=== PATIENT | male | born 1935 | race Two or more races ===

== ENCOUNTER 2018-03-06 14:56 | Inpatient (IN) | payer MEDICARE ==
--- NOTE | 2018-03-06 15:35 | ER Document Report ---
ED General - General Chief Complaint: Chest Pain Stated Complaint: CHEST PAIN Time Seen by Provider: 03/06/18 15:30 Mode of Arrival: Ambulatory Information source: Patient, Relative, Outside Facility Records Notes: 82-year-old male with tremors dementia, osteoarthritis presents via EMS from home after the patient complained of chest pain and had what family reports to be a syncopal episode. Patient is Kazakh-speaking and translation is performed by the daughter who is at the bedside and provides the majority of the history. She states that 1.5 hours prior to arrival her father began to become complaining of chest pain that was located in his right upper chest described as tightness and lasted approximately 20 minutes. and daughter assisted the patient to the bathroom when he became limp and unresponsive. Patient currently complaining of pain in the right upper quadrant. He describes it as a throbbing, burning pain. He has had prior similar symptoms. He denies any cardiac history. Patient recently arrived from the [facility] but denies any shortness of breath, leg swelling, prior history of PE or DVT. She also reports that his last bowel movement was 3 days prior to arrival. He took a laxative and had a large bowel movement this morning. TRAVEL OUTSIDE OF THE [place] IN LAST 30 DAYS: Yes COUNTRY TRAVELED TO/FROM: [facility] - [facility] Onset: Just prior to arrival Onset/Duration: Sudden Quality of pain: Achy, Burning Severity: Moderate Associated symptoms: Chest pain, Nausea, Weakness Exacerbated by: Denies Relieved by: Denies Similar symptoms previously: Yes Recently seen / treated by doctor: Yes - Related Data Allergies/Adverse Reactions: No Known Allergies Allergy (Verified 09/18/14 15:08) Past Medical History - General Information source: Patient, Relative, Emergency Med Personnel - Social History Smoking Status: Former Smoker Frequency of alcohol use: None Drug Abuse: None Lives with: Family Family History: Reviewed & Not Pertinent Patient has suicidal ideation: No Patient has homicidal ideation: No - Medical History Medical History: Other - Alzheimer's dementia, osteoarthritis Psychiatric Medical History: Denies: Hx Depression - Immunizations Hx Diphtheria, Pertussis, Tetanus Vaccination: Yes Review of Systems - Review of Systems Notes: REVIEW OF SYSTEMS: CONSTITUTIONAL : Denies fever, chills, or sweats. Denies recent illness. Denies weight loss, recent hospitalizations. EENT: Denies visula changes, eye pain. Denies nasal or sinus congestion or discharge. Denies sore throat, oral lesions, difficulty swallowing. CARDIOVASCULAR: Denies palpitations or racing or irregular heart beat. Denies lower extremity edema. RESPIRATORY: Denies cough, cold, or chest congestion. Denies shortness of breath, difficulty breathing, or wheezing. GASTROINTESTINAL: Denies vomiting, or diarrhea. Denies blood in vomitus, stools , or per rectum. Denies black, tarry stools. admits to constipation. GENITOURINARY: Denies difficulty urinating, painful urination, burning, frequency, blood in urine, or vaginal discharge. MUSCULOSKELETAL: Denies back or neck pain or stiffness. Denies joint pain or swelling. SKIN: Denies rash, lesions or sores. HEMATOLOGIC : Denies easy bruising or bleeding. LYMPHATIC: Denies swollen, enlarged glands. NEUROLOGICAL: Denies confusion or altered mental status. Denies passing out or loss of consciousness. Denies dizziness or lightheadedness. Denies headache. Denies weakness or paralysis or loss of use of either side. Denies problems with gait or speech. Denies sensory loss, numbness, or tingling. Denies seizures. PSYCHIATRIC: Denies anxiety or stress. Denies depression, suicidal ideation, or homicidal ideation. Physical Exam - Vital signs Vitals: Resp Pulse Ox 16 99 03/06/18 15:22 03/06/18 15:22 - Notes Notes: PHYSICAL EXAMINATION: GENERAL: Well-appearing, well-nourished and in no acute distress. HEAD: Atraumatic, normocephalic. EYES: Pupils equal round and reactive to light, extraocular movements intact, sclera anicteric, conjunctiva are normal. ENT: Nares patent, oropharynx clear without exudates. Moist mucous membranes. NECK: Normal range of motion, supple without lymphadenopathy LUNGS: Breath sounds clear to auscultation bilaterally and equal. No wheezes rales or rhonchi. HEART: Regular rate and rhythm without murmurs ABDOMEN: Tender to palpation in the right upper quadrant. No guarding, no rebound. No masses appreciated. Musculoskeletal: Normal range of motion, no pitting or edema. No cyanosis. NEUROLOGICAL: Cranial nerves grossly intact. Normal speech, normal gait. Normal sensory, motor exams PSYCH: Normal mood, normal affect. SKIN: Warm, Dry, normal turgor, no rashes or lesions noted. Course - Re-evaluation Re-evalutation: Laboratory 03/06/18 03/06/18 03/06/18 14:45 15:10 15:10 WBC 4.6 RBC 3.83 L Hgb 12.1 L Hct 35.1 L MCV 92 MCH 31.5 MCHC 34.3 RDW 13.8 Plt Count 169 Seg Neutrophils % 38.4 L Lymphocytes % 44.9 Monocytes % 10.9 Eosinophils % 4.7 Basophils % 1.1 Absolute Neutrophils 1.8 Absolute Lymphocytes 2.1 Absolute Monocytes 0.5 Absolute Eosinophils 0.2 Absolute Basophils 0.1 D-Dimer 2.43 H Sodium 139.1 Potassium 4.2 Chloride 105 Carbon Dioxide 26 Anion Gap 8 BUN 21 H Creatinine 0.94 Est GFR ( Amer) > 60 Est GFR (Non-Af Amer) > 60 Glucose 124 H Calcium 9.7 Total Bilirubin 0.6 Direct Bilirubin 0.3 Neonat Total Bilirubin Not Reportable Neonat Direct Bilirubin Not Reportable Neonat Indirect Bili Not Reportable AST 23 ALT 20 L Alkaline Phosphatase 45 Creatine Kinase 78 CK-MB (CK-2) Troponin I Total Protein 6.5 Albumin 3.5 TSH Urine Color Urine Appearance Urine pH Ur Specific Roy Urine Protein Urine Glucose (UA) Urine Ketones Urine Blood Urine Nitrite Urine Bilirubin Urine Urobilinogen Ur Leukocyte Esterase Urine WBC (Auto) Urine RBC (Auto) Squamous Epi Cells Auto Urine Mucus (Auto) Urine Ascorbic Acid 03/06/18 03/06/18 03/06/18 15:10 15:10 18:11 WBC RBC Hgb Hct MCV MCH MCHC RDW Plt Count Seg Neutrophils % Lymphocytes % Monocytes % Eosinophils % Basophils % Absolute Neutrophils Absolute Lymphocytes Absolute Monocytes Absolute Eosinophils Absolute Basophils D-Dimer Sodium Potassium Chloride Carbon Dioxide Anion Gap BUN Creatinine Est GFR ( Amer) Est GFR (Non-Af Amer) Glucose Calcium Total Bilirubin Direct Bilirubin Neonat Total Bilirubin Neonat Direct Bilirubin Neonat Indirect Bili AST ALT Alkaline Phosphatase Creatine Kinase CK-MB (CK-2) 2.19 Troponin I < 0.012 Total Protein Albumin TSH 3.00 Urine Color YELLOW Urine Appearance CLEAR Urine pH 5.0 Ur Specific Roy 1.017 Urine Protein NEGATIVE Urine Glucose (UA) NEGATIVE Urine Ketones TRACE H Urine Blood NEGATIVE Urine Nitrite NEGATIVE Urine Bilirubin NEGATIVE Urine Urobilinogen NEGATIVE Ur Leukocyte Esterase NEGATIVE Urine WBC (Auto) 1 Urine RBC (Auto) 9 Squamous Epi Cells Auto <1 Urine Mucus (Auto) OCC Urine Ascorbic Acid NEGATIVE 03/06/18 03/06/18 21:36 21:36 WBC RBC Hgb Hct MCV MCH MCHC RDW Plt Count Seg Neutrophils % Lymphocytes % Monocytes % Eosinophils % Basophils % Absolute Neutrophils Absolute Lymphocytes Absolute Monocytes Absolute Eosinophils Absolute Basophils D-Dimer Sodium Potassium Chloride Carbon Dioxide Anion Gap BUN Creatinine Est GFR ( Amer) Est GFR (Non-Af Amer) Glucose Calcium Total Bilirubin Direct Bilirubin Neonat Total Bilirubin Neonat Direct Bilirubin Neonat Indirect Bili AST ALT Alkaline Phosphatase Creatine Kinase 91 CK-MB (CK-2) 2.31 Troponin I < 0.012 Total Protein Albumin TSH Urine Color Urine Appearance Urine pH Ur Specific Roy Urine Protein Urine Glucose (UA) Urine Ketones Urine Blood Urine Nitrite Urine Bilirubin Urine Urobilinogen Ur Leukocyte Esterase Urine WBC (Auto) Urine RBC (Auto) Squamous Epi Cells Auto Urine Mucus (Auto) Urine Ascorbic Acid Impressions Abdomen Ultrasound 03/06/18 15:38 IMPRESSION: Cholelithiasis with no direct evidence of cholecystitis. No ductal dilatation. Chest/Abdomen CTA 03/06/18 17:56 IMPRESSION: 1. There is no evidence of pulmonary emboli. 2. Mild dependent atelectasis. 3. Compression changes in the mid thoracic spine as described. Abdomen/Pelvis CT 03/06/18 18:16 IMPRESSION: Mild diverticulosis coli. No acute imaging findings in the abdomen or pelvis. Medications Albuterol/Ipratropium (Duoneb 3 Ml Ampul) 3 ml NEB [id number] PRN PRN Reason: SHORTNESS OF BREATH Stop: 04/05/18 20:14 Heparin Sodium (Porcine) (Heparin Inj 5,000 Units/Ml 1 Ml Syringe) 5,000 unit SUBCUT Q8 TAVIA Stop: 04/05/18 21:59 Sodium Chloride (Nacl 0.9% 1000 Ml Iv Soln) 1,000 mls @ 200 mls/hr IV X 1 BAG ONE Stop: 03/07/18 01:16 Last Admin: 03/06/18 21:51 Dose: 1,000 ml Discontinued Medications Al Hydrox/Mg Hydrox/Simethicone (Maalox Plus Susp 30 Udcup) 30 ml PO NOW ONE Stop: 03/06/18 15:40 Last Admin: 03/06/18 17:57 Dose: 30 ml Aspirin (Aspirin 81 Mg Chewable Tablet) 162 mg PO NOW ONE Stop: 03/06/18 15:40 Last Admin: 03/06/18 17:57 Dose: 162 mg Sodium Chloride (Nacl 0.9% 500 Ml Iv Soln) 500 mls @ 0 mls/hr IV NOW ONE PRN Reason: Wide Open Stop: 03/06/18 15:39 Last Admin: 03/06/18 17:57 Dose: 500 ml Lidocaine HCl (Xylocaine 2% Viscous Soln 20 Ml Udcup) 15 ml PO NOW ONE Stop: 03/06/18 15:40 Last Admin: 03/06/18 17:57 Dose: 15 ml Magnesium Hydroxide (Milk Of Magnesia 30 Ml Udcup) 30 ml PO NOW ONE Stop: 03/06/18 20:18 Last Admin: 03/06/18 21:51 Dose: 30 ml Metoclopramide HCl (Reglan Oral Soln 10 Mg/10 Ml Udcup) 10 mg PO NOW ONE Stop: 03/06/18 15:40 Last Admin: 03/06/18 17:57 Dose: 10 mg Mineral Oil (Fleet Mineral Oil Enema 133 Ml) 133 ml NJ NOW ONE Stop: 03/06/18 20:16 Mineral Oil (Fleet Mineral Oil Enema 133 Ml) 133 ml NJ NOW ONE Stop: 03/06/18 23:31 Morphine Sulfate (Morphine 10 Mg/Ml Inj) 4 mg IV NOW ONE Stop: 03/06/18 19:42 Last Admin: 03/06/18 20:18 Dose: 4 mg Ondansetron HCl (Zofran Inj/Pf 4 Mg/2 Ml Sdv) 4 mg IV NOW ONE Stop: 03/06/18 19:43 Last Admin: 03/06/18 20:18 Dose: 4 mg Orders 03/06/18 EKG ER ONLY [ER] Stat 03/06/18 14:45 D-DIMER [COAG] Stat 03/06/18 14:59 EKG Documentation STAT 03/06/18 15:10 CBC WITH DIFF [HEME] Stat COMPREHENSIVE METABOLIC PANEL [CHEM] Stat CREATINE KINASE MB [CHEM] Stat CREATINE KINASE [CHEM] Stat THYROID STIMULATING HORMONE [CHEM] Stat TROPONIN I [CHEM] Stat 03/06/18 15:38 US [U/S ABDOMEN COMPLETE W/O DOP] [US] Stat Normal Saline [NaCl 0.9% 500 ml IV Soln] 500 ml IV NOW 03/06/18 15:39 Aspirin [Aspirin 81 mg Chewable Tablet] 162 mg PO NOW ONE Lidocaine HCl [Xylocaine 2% Viscous Soln 20 ml Udcup] 15 ml PO NOW ONE Mag Hydrox/Al Hydrox/Simeth [Maalox Plus Susp 30 Udcup] 30 ml PO NOW ONE Metoclopramide HCl [Reglan Oral Soln 10 mg/10 ml Udcup] 10 mg PO NOW ONE 03/06/18 17:56 CTA CHEST [CT] Stat 03/06/18 18:11 URINALYSIS [URIN] Stat 03/06/18 18:16 CT ABD/PELVIS WITH IV ONLY [CT] Stat 03/06/18 19:41 Morphine Sulfate [Morphine 10 mg/ml Inj] 4 mg IV NOW ONE 03/06/18 19:42 Ondansetron HCl/Pf [Zofran Inj/Pf 4 mg/2 ml Sdv] 4 mg IV NOW ONE 03/06/18 20:15 Adult Intake and Output [RC] QSHIFT Nurse Licensed Practical [RC] CONTINUOUS Fall Precaution [RC] .ROUTINE Out of Bed with assistance [RC] .ROUTINE Patient Status-Admission .Routine Social Service/Discharge Plan Consult [CONS] Routine Ipratropium/Albuterol Sulfate [Duoneb 3 ml Ampul] 3 ml NEB [id number] PRN Mineral Oil [Fleet Mineral Oil Enema 133 ml] 133 ml NJ NOW ONE Mechanical Prophylaxis .ROUTINE Pharmacological Prophylaxis .ROUTINE Resuscitation Status Routine Vital Signs [RC] Q4H Weight [RC] Q6AM Physical Therapy Evaluation [REHAB] .once 03/06/18 20:17 Magnesium Hydroxide [Milk of Magnesia 30 ml Udcup] 30 ml PO NOW ONE Normal Saline 1000 ml [NaCl 0.9% 1000 ml IV Soln] 1,000 ml IV X 1 BAG 03/06/18 20:18 Patient Education-VTE [RC] QSHIFT Garcia Hose [RC] QSHIFT Nebulizer Therapy Routine [RESPCARE] [id number] 03/06/18 20:22 Orthostatic Vital Signs [RC] QSHIFT 03/06/18 21:36 CREATINE KINASE MB [CHEM] Q6H CREATINE KINASE [CHEM] Q6H TROPONIN I [CHEM] Q6H 03/06/18 22:00 Heparin Sodium,Porcine [Heparin Inj 5,000 Units/ml 1 ml Syringe] 5,000 unit SUBCUT Q8 03/06/18 23:12 Social Service/Discharge Plan Consult [CONS] Routine 03/06/18 23:30 Mineral Oil [Fleet Mineral Oil Enema 133 ml] 133 ml NJ NOW ONE 03/06/18 Breakfast Adult Diet [DIET] 03/07/18 02:30 CREATINE KINASE MB [CHEM] Q6H CREATINE KINASE [CHEM] Q6H TROPONIN I [CHEM] Q6H 03/07/18 08:30 CREATINE KINASE MB [CHEM] Q6H CREATINE KINASE [CHEM] Q6H TROPONIN I [CHEM] Q6H Vital Signs Resp BP Pulse Ox 03/06/18 22:01 15 99 03/06/18 22:00 25 H 118/68 98 03/06/18 21:59 15 98 03/06/18 21:01 13 97 03/06/18 21:00 15 119/58 L 97 03/06/18 20:59 15 97 03/06/18 20:19 19 120/69 99 03/06/18 20:18 22 H 99 03/06/18 20:00 18 99 03/06/18 19:54 98 03/06/18 18:01 22 H 100 03/06/18 18:00 28 H 128/64 H 99 03/06/18 17:59 18 100 03/06/18 17:58 31 H 125/62 100 03/06/18 17:57 29 H 100 03/06/18 17:55 98 03/06/18 16:01 16 117/56 L 98 03/06/18 16:00 17 97 03/06/18 15:27 13 98/84 L 100 03/06/18 15:26 20 115/67 100 03/06/18 15:25 26 H 100 03/06/18 15:22 16 99 Laboratory 03/06/18 03/06/18 03/06/18 14:45 15:10 15:10 WBC 4.6 RBC 3.83 L Hgb 12.1 L Hct 35.1 L MCV 92 MCH 31.5 MCHC 34.3 RDW 13.8 Plt Count 169 Seg Neutrophils % 38.4 L Lymphocytes % 44.9 Monocytes % 10.9 Eosinophils % 4.7 Basophils % 1.1 Absolute Neutrophils 1.8 Absolute Lymphocytes 2.1 Absolute Monocytes 0.5 Absolute Eosinophils 0.2 Absolute Basophils 0.1 D-Dimer 2.43 H Sodium 139.1 Potassium 4.2 Chloride 105 Carbon Dioxide 26 Anion Gap 8 BUN 21 H Creatinine 0.94 Est GFR ( Amer) > 60 Est GFR (Non-Af Amer) > 60 Glucose 124 H Calcium 9.7 Total Bilirubin 0.6 Direct Bilirubin 0.3 Neonat Total Bilirubin Not Reportable Neonat Direct Bilirubin Not Reportable Neonat Indirect Bili Not Reportable AST 23 ALT 20 L Alkaline Phosphatase 45 Creatine Kinase 78 CK-MB (CK-2) Troponin I Total Protein 6.5 Albumin 3.5 TSH Urine Color Urine Appearance Urine pH Ur Specific Roy Urine Protein Urine Glucose (UA) Urine Ketones Urine Blood Urine Nitrite Urine Bilirubin Urine Urobilinogen Ur Leukocyte Esterase Urine WBC (Auto) Urine RBC (Auto) Squamous Epi Cells Auto Urine Mucus (Auto) Urine Ascorbic Acid 03/06/18 03/06/18 03/06/18 15:10 15:10 18:11 WBC RBC Hgb Hct MCV MCH MCHC RDW Plt Count Seg Neutrophils % Lymphocytes % Monocytes % Eosinophils % Basophils % Absolute Neutrophils Absolute Lymphocytes Absolute Monocytes Absolute Eosinophils Absolute Basophils D-Dimer Sodium Potassium Chloride Carbon Dioxide Anion Gap BUN Creatinine Est GFR ( Amer) Est GFR (Non-Af Amer) Glucose Calcium Total Bilirubin Direct Bilirubin Neonat Total Bilirubin Neonat Direct Bilirubin Neonat Indirect Bili AST ALT Alkaline Phosphatase Creatine Kinase CK-MB (CK-2) 2.19 Troponin I < 0.012 Total Protein Albumin TSH 3.00 Urine Color YELLOW Urine Appearance CLEAR Urine pH 5.0 Ur Specific Roy 1.017 Urine Protein NEGATIVE Urine Glucose (UA) NEGATIVE Urine Ketones TRACE H Urine Blood NEGATIVE Urine Nitrite NEGATIVE Urine Bilirubin NEGATIVE Urine Urobilinogen NEGATIVE Ur Leukocyte Esterase NEGATIVE Urine WBC (Auto) 1 Urine RBC (Auto) 9 Squamous Epi Cells Auto <1 Urine Mucus (Auto) OCC Urine Ascorbic Acid NEGATIVE 03/06/18 03/06/18 21:36 21:36 WBC RBC Hgb Hct MCV MCH MCHC RDW Plt Count Seg Neutrophils % Lymphocytes % Monocytes % Eosinophils % Basophils % Absolute Neutrophils Absolute Lymphocytes Absolute Monocytes Absolute Eosinophils Absolute Basophils D-Dimer Sodium Potassium Chloride Carbon Dioxide Anion Gap BUN Creatinine Est GFR ( Amer) Est GFR (Non-Af Amer) Glucose Calcium Total Bilirubin Direct Bilirubin Neonat Total Bilirubin Neonat Direct Bilirubin Neonat Indirect Bili AST ALT Alkaline Phosphatase Creatine Kinase 91 CK-MB (CK-2) 2.31 Troponin I < 0.012 Total Protein Albumin TSH Urine Color Urine Appearance Urine pH Ur Specific Roy Urine Protein Urine Glucose (UA) Urine Ketones Urine Blood Urine Nitrite Urine Bilirubin Urine Urobilinogen Ur Leukocyte Esterase Urine WBC (Auto) Urine RBC (Auto) Squamous Epi Cells Auto Urine Mucus (Auto) Urine Ascorbic Acid Discharge Plan of Care Instructions: Stand-Alone Forms: Visit Report - Forms: - Referrals: Emergency Department Last Name: SARI Status: Bed Clean First Name: ROSA Priority: 3H Middle: Condition: Birthdate: 1935 Arrival Date/Time: 03/06/18 14:56 Age: 82 Arrival Mode: AMBULANCE Sex: M Triaged At: 03/06/18 15:28 Language: Croatian Time Seen by Provider: 03/06/18 15:30 Stated Complaint: CHEST PAIN Chief Complaint: Chest Pain ED Location: POD 1 Area: 04 Station: Group: ED Provider: ALVINA PLAAZ ED Midlevel Provider: ED Nurse: Primary Care Provider: Status/Phase DtTm/Value User/Action Bed Request 03/06/18 20:40:50 APPLE GOINS Attending Provider SUKH JOHNSON MD New Admitting Provider SUKH JOHNSON MD New With Provider 03/06/18 15:30:35 ALVINA PLAZA Ed Provider ALVINA PLAZA DO Edit Arrival 03/06/18 15:28 BRUNO RUIZ Chief Complaint Chest Pain New 03/06/18 14:56:55 KELLY OSTO Ed Provider PROVIDER, ER New Stated Complaint CHEST PAIN New Abdomen Ultrasound 03/06/18 15:38 IMPRESSION: Cholelithiasis with no direct evidence of cholecystitis. No ductal dilatation. Chest/Abdomen CTA 03/06/18 17:56 IMPRESSION: 1. There is no evidence of pulmonary emboli. 2. Mild dependent atelectasis. 3. Compression changes in the mid thoracic spine as described. Abdomen/Pelvis CT 03/06/18 18:16 IMPRESSION: Mild diverticulosis coli. No acute imaging findings in the abdomen or pelvis. Laboratory 03/06/18 03/06/18 03/06/18 14:45 15:10 15:10 WBC 4.6 RBC 3.83 L Hgb 12.1 L Hct 35.1 L MCV 92 MCH 31.5 MCHC 34.3 RDW 13.8 Plt Count 169 Seg Neutrophils % 38.4 L Lymphocytes % 44.9 Monocytes % 10.9 Eosinophils % 4.7 Basophils % 1.1 Absolute Neutrophils 1.8 Absolute Lymphocytes 2.1 Absolute Monocytes 0.5 Absolute Eosinophils 0.2 Absolute Basophils 0.1 D-Dimer 2.43 H Sodium 139.1 Potassium 4.2 Chloride 105 Carbon Dioxide 26 Anion Gap 8 BUN 21 H Creatinine 0.94 Est GFR ( Amer) > 60 Est GFR (Non-Af Amer) > 60 Glucose 124 H Calcium 9.7 Total Bilirubin 0.6 Direct Bilirubin 0.3 Neonat Total Bilirubin Not Reportable Neonat Direct Bilirubin Not Reportable Neonat Indirect Bili Not Reportable AST 23 ALT 20 L Alkaline Phosphatase 45 Creatine Kinase 78 CK-MB (CK-2) Troponin I Total Protein 6.5 Albumin 3.5 TSH Urine Color Urine Appearance Urine pH Ur Specific Roy Urine Protein Urine Glucose (UA) Urine Ketones Urine Blood Urine Nitrite Urine Bilirubin Urine Urobilinogen Ur Leukocyte Esterase Urine WBC (Auto) Urine RBC (Auto) Squamous Epi Cells Auto Urine Mucus (Auto) Urine Ascorbic Acid 03/06/18 03/06/18 03/06/18 15:10 15:10 18:11 WBC RBC Hgb Hct MCV MCH MCHC RDW Plt Count Seg Neutrophils % Lymphocytes % Monocytes % Eosinophils % Basophils % Absolute Neutrophils Absolute Lymphocytes Absolute Monocytes Absolute Eosinophils Absolute Basophils D-Dimer Sodium Potassium Chloride Carbon Dioxide Anion Gap BUN Creatinine Est GFR ( Amer) Est GFR (Non-Af Amer) Glucose Calcium Total Bilirubin Direct Bilirubin Neonat Total Bilirubin Neonat Direct Bilirubin Neonat Indirect Bili AST ALT Alkaline Phosphatase Creatine Kinase CK-MB (CK-2) 2.19 Troponin I < 0.012 Total Protein Albumin TSH 3.00 Urine Color YELLOW Urine Appearance CLEAR Urine pH 5.0 Ur Specific Roy 1.017 Urine Protein NEGATIVE Urine Glucose (UA) NEGATIVE Urine Ketones TRACE H Urine Blood NEGATIVE Urine Nitrite NEGATIVE Urine Bilirubin NEGATIVE Urine Urobilinogen NEGATIVE Ur Leukocyte Esterase NEGATIVE Urine WBC (Auto) 1 Urine RBC (Auto) 9 Squamous Epi Cells Auto <1 Urine Mucus (Auto) OCC Urine Ascorbic Acid NEGATIVE 03/06/18 03/06/18 21:36 21:36 WBC RBC Hgb Hct MCV MCH MCHC RDW Plt Count Seg Neutrophils % Lymphocytes % Monocytes % Eosinophils % Basophils % Absolute Neutrophils Absolute Lymphocytes Absolute Monocytes Absolute Eosinophils Absolute Basophils D-Dimer Sodium Potassium Chloride Carbon Dioxide Anion Gap BUN Creatinine Est GFR ( Amer) Est GFR (Non-Af Amer) Glucose Calcium Total Bilirubin Direct Bilirubin Neonat Total Bilirubin Neonat Direct Bilirubin Neonat Indirect Bili AST ALT Alkaline Phosphatase Creatine Kinase 91 CK-MB (CK-2) 2.31 Troponin I < 0.012 Total Protein Albumin TSH Urine Color Urine Appearance Urine pH Ur Specific Roy Urine Protein Urine Glucose (UA) Urine Ketones Urine Blood Urine Nitrite Urine Bilirubin Urine Urobilinogen Ur Leukocyte Esterase Urine WBC (Auto) Urine RBC (Auto) Squamous Epi Cells Auto Urine Mucus (Auto) Urine Ascorbic Acid Abdomen Ultrasound 03/06/18 15:38 IMPRESSION: Cholelithiasis with no direct evidence of cholecystitis. No ductal dilatation. Chest/Abdomen CTA 03/06/18 17:56 IMPRESSION: 1. There is no evidence of pulmonary emboli. 2. Mild dependent atelectasis. 3. Compression changes in the mid thoracic spine as described. Abdomen/Pelvis CT 03/06/18 18:16 IMPRESSION: Mild diverticulosis coli. No acute imaging findings in the abdomen or pelvis. 03/06/18 23:31 82-year-old male with Alzheimer's dementia, osteoarthritis presents via EMS from home after the patient complained of chest pain and had what family reports to be a syncopal episode. Patient is Kazakh-speaking and translation is performed by the daughter who is at the bedside and provides the majority of the history. She states that 1.5 hours prior to arrival her father began to become complaining of chest pain that was located in his right upper chest described as tightness and lasted approximately 20 minutes. and daughter assisted the patient to the bathroom when he became limp and unresponsive. Patient currently complaining of pain in the right upper quadrant. Upon arrival patient was placed on a cardiac/vascular sonographer and an EKG was obtained which showed the patient to be in sinus bradycardia. Patient was seen by myself upon arrival. Vital signs were reviewed. Patient is afebrile, normotensive and not hypoxic. Patient does not appear toxic or dehydrated. They are in no acute distress. Previous medical records and nursing notes reviewed. Significant findings include tenderness with palpation to the right upper quadrant without guarding or rebound. Ultrasound of the abdomen is significant for cholelithiasis without evidence of cholecystitis. CTA was performed due to elevated d-dimer and showed no PE. CT of the abdomen and pelvis was obtained and showed mild diverticulosis without evidence of diverticulitis. Patient was administered IV fluids, pain medications during his ED course. Cardiac enzymes within normal limits. Patient has a mildly elevated d-dimer, CBC is without leukocytosis. Patient will be admitted for syncope. 03/06/18 23:32 03/06/18 23:32 03/06/18 23:37 - Vital Signs Vital signs: Temp Pulse Resp BP Pulse Ox 15 118/68 99 03/06/18 22:01 03/06/18 22:00 03/06/18 22:01 - Laboratory Result Diagrams: 03/06/18 15:10 03/06/18 15:10 Laboratory results interpreted by me: 03/06/18 03/06/18 03/06/18 14:45 15:10 15:10 RBC 3.83 L Hgb 12.1 L Hct 35.1 L Seg Neutrophils % 38.4 L D-Dimer 2.43 H BUN 21 H Glucose 124 H ALT 20 L Urine Ketones 03/06/18 18:11 RBC Hgb Hct Seg Neutrophils % D-Dimer BUN Glucose ALT Urine Ketones TRACE H - Diagnostic Test Radiology reviewed: Image reviewed, Reports reviewed - EKG Interpretation by Me EKG shows normal: Sinus rhythm Rate: Bradycardia Rhythm: NSR Discharge - Discharge Clinical Impression: Syncope and collapse Chest pain Qualifiers: Chest pain type: unspecified Qualified Code(s): R07.9 - Chest pain, unspecified Cholelithiasis Qualifiers: Cholelithiasis location: gallbladder Cholecystitis presence: without cholecystitis Biliary obstruction: without biliary obstruction Qualified Code(s) : K80.20 - Calculus of gallbladder without cholecystitis without obstruction Dementia Qualifiers: Dementia type: Alzheimer's disease Alzheimer's disease onset: unspecified onset Dementia behavioral disturbance: without behavioral disturbance Qualified Code(s): G30.9 - Alzheimer's disease, unspecified Disposition: ADMITTED OBSERVATION Admitting Provider: Hospitalist Unit Admitted: Telemetry
[2018-03-06] MEDS ORDERED: NORMAL SALINE 500 ML IV ONE (15:38)
[2018-03-06] MEDS ORDERED: LIDOCAINE 2% VISCOUS SOLN 20 ML UDCUP PO ONE (15:39)
[2018-03-06] MEDS ORDERED: MAG HYDROX/AL HYDROX/SIMETH SUSP 30 ML UDCUP PO ONE (15:39)
[2018-03-06] MEDS ORDERED: ASPIRIN 81 MG TABLET, CHEWABLE PO ONE (15:39)
[2018-03-06] MEDS ORDERED: METOCLOPRAMIDE HCL ORAL SOLN 10 MG/10 ML UDCUP PO ONE (15:39)
[2018-03-06 16:05] LABS: ABSOLUTE BASOPHILS # (AUTO) 0.1 10^3/uL (0.0-0.2); ABSOLUTE EOSINOPHILS # (AUTO) 0.2 10^3/uL (0.0-0.6); ABSOLUTE LYMPHOCYTES (AUTO) 2.1 10^3/uL (0.5-4.7); ABSOLUTE MONOCYTES (AUTO) 0.5 10^3/uL (0.1-1.4); ABSOLUTE NEUT (AUTO) 1.8 10^3/uL (1.7-8.2); BASOPHILS % (AUTO) 1.1 % (0-2); EOSINOPHILS % (AUTO) 4.7 % (0-6); HEMATOCRIT 35.1 % (37.9-51.0); HEMOGLOBIN 12.1 g/dL (13.5-17.0); LYMPHOCYTES % (AUTO) 44.9 % (13-45); MEAN CORPUSCULAR HEMOGLOBIN 31.5 pg (27.0-33.4); MEAN CORPUSCULAR HGB CONC 34.3 g/dL (32.0-36.0); MEAN CORPUSCULAR VOLUME 92 fl (80-97); MONOCYTES % (AUTO) 10.9 % (3-13); PLATELET COUNT 169 10^3/uL (150-450); RED BLOOD COUNT 3.83 10^6/uL (4.35-5.55); RED CELL DISTRIBUTION WIDTH 13.8 % (11.5-14.0); SEGMENTED NEUTROPHILS % (AUTO) 38.4 % (42-78); TOTAL CELLS COUNTED % (AUTO) 100 %; WHITE BLOOD COUNT 4.6 10^3/uL (4.0-10.5)
[2018-03-06 16:15] LABS: ALANINE AMINOTRANSFERASE 20 U/L (21-72); ALBUMIN 3.5 g/dL (3.5-5.0); ALKALINE PHOSPHATASE 45 U/L (38-126); ANION GAP 8 (5-19); ASPARTATE AMINO TRANSFERASE 23 U/L (17-59); BILIRUBIN,DIRECT 0.3 mg/dL (0.0-0.4); BILIRUBIN,TOTAL 0.6 mg/dL (0.2-1.3); BLOOD UREA NITROGEN 21 mg/dL (7-20); CALCIUM 9.7 mg/dL (8.4-10.2); CARBON DIOXIDE 26 mmol/L (22-30); CHLORIDE 105 mmol/L (98-107); CREATINE KINASE 78 U/L (55-170); GLUCOSE 124 mg/dL (75-110); POTASSIUM 4.2 mmol/L (3.6-5.0); SODIUM 139.1 mmol/L (137-145); TOTAL PROTEIN 6.5 g/dL (6.3-8.2)
[2018-03-06 16:23] LABS: CREATINE KINASE MB 2.19 ng/mL (<4.55)
[2018-03-06 16:28] LABS: TROPONIN I < 0.012 ng/mL
--- NOTE | 2018-03-06 17:27 | RADIOLOGY REPORT (SQ) ---
EXAM DESCRIPTION: U/S ABDOMEN COMPLETE W/O DOP COMPLETED DATE/TIME: 03/06/2018 5:16 pm REASON FOR STUDY: ruq pain COMPARISON: None. TECHNIQUE: Dynamic and static grayscale images acquired of the abdomen and recorded on PACS. Additio nal selected color Doppler and spectral images recorded. LIMITATIONS: None. FINDINGS: PANCREAS: No masses. Visualized pancreatic duct normal caliber. LIVER: 14.1 cm. Normal echotexture. LIVER VASCULATURE: Normal directional flow of the main portal vein and hepatic veins. GALLBLADDER: Small gallstones are present. Normal wall thickness. ULTRASOUND-DETECTED HELTON'S SIGN: Negative. INTRAHEPATIC DUCTS AND COMMON DUCT: CBD and intrahepatic ducts normal caliber. No filling defects. INFERIOR VENA CAVA: Patent. AORTA: No aneurysm. The proximal aorta was not well seen. RIGHT KIDNEY: Normal size, 10.5 cm. Normal echogenicity. No solid or suspicious masses. No hyd ronephrosis. No calcifications. LEFT KIDNEY: Normal size, 10.5 cm. Normal echogenicity. No solid or suspicious masses. No hydr onephrosis. No calcifications. SPLEEN: Normal size, 8.2 cm. No solid masses. PERITONEAL AND PLEURAL SPACES: No ascites or effusions. OTHER: No other significant finding. IMPRESSION: Cholelithiasis with no direct evidence of cholecystitis. No ductal dilatation. TECHNICAL DOCUMENTATION: JOB ID: [id number] [employer]- All Rights Reserved Reading location - IP/workstation name: [email or web address]
[2018-03-06 18:36] LABS: APPEARANCE,URINE CLEAR; BILIRUBIN,URINE NEGATIVE (NEGATIVE); COLOR,URINE YELLOW; GLUCOSE, URINE NEGATIVE (NEGATIVE); KETONES,URINE TRACE mg/dL (NEGATIVE); LEUKOCYTE ESTERASE,URINE NEGATIVE (NEGATIVE); NITRITE,URINE NEGATIVE (NEGATIVE); PROTEIN,URINE NEGATIVE (NEGATIVE); URINE SPECIFIC GRAVITY 1.017; UROBILINOGEN,URINE NEGATIVE mg/dL (<2.0)
--- NOTE | 2018-03-06 18:59 | RADIOLOGY REPORT (SQ) ---
EXAM DESCRIPTION: CTA CHEST COMPLETED DATE/TIME: 03/06/2018 6:42 pm REASON FOR STUDY: elevated dimer loc COMPARISON: 09/18/2014 TECHNIQUE: CT scan of the chest performed using helical scanning technique with dynamic intravenous contrast injection. Images reviewed with lung, soft tissue and bone windows. Reconstructed coronal and sagittal MPR images reviewed. Additional 3 dimensional post-processing performed to develop Maximal Intensity Projection images (IL P). All images stored on PACS. All CT scanners at this facility use dose modulation, iterative reconstruction, and/or weight based d osing when appropriate to reduce radiation dose to as low as reasonably achievable (ALARA). [facility]: Dose Right [facility]: CareDose [facility]: Dose Right [facility]: Teradose 4D [facility]: [email or web address] CONTRAST TYPE AND DOSE: 100 mL Isovue 370- low osmolar. Contrast bolus optimized for the pulmonary arteries. Not diagnostic for the aorta. RENAL FUNCTION: BUN 19 creatinine 0.87 RADIATION DOSE: CT Rad equipment meets quality standard of care and radiation dose reduction techniq ues were employed. CTDIvol: 10.1 - 16.5 mGy. DLP: 1770 mGy-cm. . LIMITATIONS: None. FINDINGS: LUNGS AND PLEURA: Mild dependent atelectasis. AORTA AND GREAT VESSELS: No aneurysm. Contrast bolus not optimized for the aorta. HEART: No pericardial effusion. Moderate coronary artery calcifications. PULMONARY ARTERIES: No emboli visualized in the main pulmonary arteries or the segmental branches. HILAR AND MEDIASTINAL STRUCTURES: No identified masses or abnormal nodes. HARDWARE: None in the chest. UPPER ABDOMEN: See separate report of the CT of the abdomen. THYROID AND OTHER SOFT TISSUES: No masses. No adenopathy. BONES: Compression changes in the mid thoracic spine that do not appear to be acute. 3D MIPS: Confirm above findings. OTHER: No other significant finding. IMPRESSION: 1. There is no evidence of pulmonary emboli. 2. Mild dependent atelectasis. 3. Compression changes in the mid thoracic spine as described. COMMENT: Quality ID # [id number]: Final reports with documentation of one or more dose reduction techniques (e.g., Automated exposure control, adjustment of the mA and/or kV according to patient size, use of iterative reconstruction technique) TECHNICAL DOCUMENTATION: JOB ID: [id number] [employer]- All Rights Reserved Reading location - IP/workstation name: [email or web address]
--- NOTE | 2018-03-06 19:08 | RADIOLOGY REPORT (SQ) ---
EXAM DESCRIPTION: CT ABD/PELVIS WITH IV ONLY COMPLETED DATE/TIME: 03/06/2018 6:42 pm REASON FOR STUDY: right flank pain COMPARISON: None. TECHNIQUE: CT scan of the abdomen and pelvis performed using helical scanning technique with dynamic intravenous contrast injection. No oral contrast. Images reviewed with lung, soft tissue, and bone windows. Reconstructed coronal and sagittal MPR images reviewed. Delayed images for evaluation of the urinary system also acquired. All images stored on PACS. All CT scanners at this facility use dose modulation, iterative reconstruction, and/or weight based d osing when appropriate to reduce radiation dose to as low as reasonably achievable (ALARA). [facility]: Dose Right [facility]: CareDose [facility]: Dose Right [facility]: Teradose 4D [facility]: [employer] CONTRAST TYPE AND DOSE: contrast/concentration: Isovue 370.00 mg/ml; Total Contrast Delivered: 62.0 ml; Total Saline Delivered: 79.0 ml 62 mL Isovue 370- low osmolar. RENAL FUNCTION: BUN 21 creatinine 0.94 RADIATION DOSE: . LIMITATIONS: None. FINDINGS: LOWER CHEST: See separate report of the CT of the chest. LIVER: Normal size. No masses. No dilated ducts. SPLEEN: Normal size. No focal lesions. PANCREAS: No masses. No significant calcifications. No adjacent inflammation or peripancreatic fluid collections. Pancreatic duct not dilated. GALLBLADDER: No identified stones by CT criteria. No inflammatory changes to suggest cholecystitis. ADRENAL GLANDS: No significant masses or asymmetry. RIGHT KIDNEY AND URETER: No solid masses. No significant calcifications. No hydronephrosis or hyd roureter. LEFT KIDNEY AND URETER: No solid masses. No significant calcifications. No hydronephrosis or hydr oureter. AORTA AND VESSELS: No aneurysm. No dissection. Renal arteries, SMA, celiac without stenosis. RETROPERITONEUM: No retroperitoneal adenopathy, hemorrhage or masses. BOWEL AND PERITONEAL CAVITY: Mild sigmoid diverticulosis. No obvious masses. No inflammatory change s. APPENDIX: Not identified. PELVIS: No mass. No free fluid. Normal bladder. ABDOMINAL WALL: No masses. No hernias. BONES: No significant or acute findings. OTHER: No other significant finding. IMPRESSION: Mild diverticulosis coli. No acute imaging findings in the abdomen or pelvis. TECHNICAL DOCUMENTATION: JOB ID: [id number] Quality ID # [id number]: Final reports with documentation of one or more dose reduction techniques (e.g., Au tomated exposure control, adjustment of the mA and/or kV according to patient size, use of iterative reconstruction technique) 2010 [employer]- All Rights Reserved Reading location - IP/workstation name: [email or web address]
[2018-03-06] MEDS ORDERED: MORPHINE SULFATE 10 MG/ML INJ IV ONE (19:41)
[2018-03-06] MEDS ORDERED: ONDANSETRON HCL INJ/PF 4 MG/2 ML SDV IV ONE (19:42)
[2018-03-06] MEDS ORDERED: IPRATROPIUM/ALBUTEROL 0.5-2.5 MG/3 ML AMPUL NEB PRN (20:15)
[2018-03-06] MEDS ORDERED: MINERAL OIL ENEMA 133 ML PR ONE ×2 (20:15→23:30)
[2018-03-06] MEDS ORDERED: MAGNESIUM HYDROXIDE SUSP 30 ML UDCUP PO ONE (20:17)
[2018-03-06] MEDS ORDERED: NORMAL SALINE 1000 ML 1,000 ML IV ONE (20:17)
[2018-03-06 22:19] LABS: CREATINE KINASE MB 2.31 ng/mL (<4.55)
[2018-03-06 22:25] LABS: TROPONIN I < 0.012 ng/mL
--- NOTE | 2018-03-06 22:38 | EKG REPORT ---
SEVERITY:- NORMAL ECG - SINUS BRADYCARDIA : Confirmed by: Indira Cheung MD 06-Mar-2018 22:37:06
[2018-03-07] MEDS: HEPARIN SOD (PORCINE) 5,000 UNIT/ML 1 ML SYRINGE SUBCUT SCH ×4 (00:01→22:25)
[2018-03-07] MEDS ORDERED: MINERAL OIL ENEMA 133 ML PR ONE (01:08)
[2018-03-07] MEDS ORDERED: ACETAMINOPHEN 325 MG TABLET PO PRN (01:15)
--- NOTE | 2018-03-07 04:41 | PDOC H&P ---
History of Present Illness Admission Date/PCP: 03/06/18 20:40 Patient complains of: Syncope History of Present Illness: ROSA GUO is a 82 year old male Kazakh-speaking male with history of dementia with paranoia and anxiety. Patient presents after prolonged international flight, complained of constipation took laxative followed by syncopal episode hours later. He denies chest pain palpitations nausea vomiting or headache. In the emergency room he has an unremarkable workup with exception to sinus bradycardia in the 60s. Patient takes Namenda and Xanax as needed. He has a negative CTA chest and referred to the hospitalist for admission. Patient admits gait instability and previous syncopal episode approximately 3 years ago without definitive diagnosis. Past Medical History Cardiac Medical History: Reports: Atrial Fibrillation - Bradycardia, Hypertension - HYPOtension Pulmonary Medical History: Reports: None EENT Medical History: Reports: None Neurological Medical History: Reports: None Endocrine Medical History: Reports: None Renal/ Medical History: Reports: None Malignancy Medical History: Reports: None GI Medical History: Reports: Gastroesophageal Reflux Disease Musculoskeltal Medical History: Reports: Arthritis Psychiatric Medical History: Reports: Dementia Denies: Depression Past Surgical History Past Surgical History: Reports: None Social History Information Source: Patient, Relative Lives with: Family Smoking Status: Former Smoker Frequency of Alcohol Use: None Hx Recreational Drug Use: No Drugs: None Hx Prescription Drug Abuse: No - Advance Directive Resuscitation Status: Full Code Family History Family History: Arthritis Parental Family History Reviewed: Yes Children Family History Reviewed: Yes Sibling(s) Family History Reviewed.: Yes Medication/Allergy Home Medications: Alprazolam [Xanax 0.5 mg Tablet] 0.5 mg PO QHS 03/06/18 Cholecalciferol (Vitamin D3) [Maximum D3 10,000 unit Capsule] 10,000 unit PO DAILY 03/06/18 Cyanocobalamin (Vitamin B-12) [Vitamin B-12 1000 mcg Tablet] 1,000 mcg PO DAILY 03/06/18 Memantine HCl [Namenda 10 mg Tablet] 20 mg PO DAILY@1200 03/06/18 Allergies/Adverse Reactions: No Known Allergies Allergy (Verified 09/18/14 15:08) Review of Systems Constitutional: ABSENT: chills, fever(s), headache(s), weight gain, weight loss Eyes: ABSENT: visual disturbances Ears: ABSENT: hearing changes Cardiovascular: ABSENT: chest pain, dyspnea on exertion, edema, orthropnea, palpitations Respiratory: ABSENT: cough, hemoptysis Gastrointestinal: ABSENT: abdominal pain, constipation, diarrhea, hematemesis, hematochezia, nausea, vomiting Genitourinary: ABSENT: dysuria, hematuria Musculoskeletal: ABSENT: joint swelling Integumentary: ABSENT: rash, wounds Neurological: ABSENT: abnormal gait, abnormal speech, confusion, dizziness, focal weakness, syncope Psychiatric: ABSENT: anxiety, depression, homidical ideation, suicidal ideation Endocrine: ABSENT: cold intolerance, heat intolerance, polydipsia, polyuria Hematologic/Lymphatic: ABSENT: easy bleeding, easy bruising Physical Exam Vital Signs: Temp Pulse Resp BP Pulse Ox 97.9 F 58 L 14 134/63 H 96 03/07/18 00:15 03/07/18 02:02 03/07/18 02:02 03/07/18 00:15 03/07/18 02:02 Intake & Output 03/05/18 03/06/18 03/07/18 11:59 11:59 11:59 Weight 55.8 kg General appearance: PRESENT: no acute distress, well-developed, well-nourished Head exam: PRESENT: atraumatic, normocephalic Eye exam: PRESENT: conjunctiva pink, EOMI, PERRLA. ABSENT: scleral icterus Ear exam: PRESENT: normal external ear exam Mouth exam: PRESENT: moist, tongue midline Neck exam: ABSENT: carotid bruit, JVD, lymphadenopathy, thyromegaly Respiratory exam: PRESENT: clear to auscultation dayana. ABSENT: rales, rhonchi, wheezes Cardiovascular exam: PRESENT: RRR, systolic murmur - Known long-standing systolic murmur. ABSENT: diastolic murmur, rubs Pulses: PRESENT: normal dorsalis pedis pul Vascular exam: PRESENT: normal capillary refill GI/Abdominal exam: PRESENT: normal bowel sounds, soft. ABSENT: distended, guarding, mass, organolmegaly, rebound, tenderness Rectal exam: PRESENT: deferred Extremities exam: PRESENT: full ROM. ABSENT: calf tenderness, clubbing, pedal edema, +1 edema, +2 edema Neurological exam: PRESENT: alert, awake, oriented to person, oriented to place , oriented to time, oriented to situation, CN II-XII grossly intact. ABSENT: motor sensory deficit Psychiatric exam: PRESENT: appropriate affect, normal mood. ABSENT: homicidal ideation, suicidal ideation Skin exam: PRESENT: dry, intact, warm. ABSENT: cyanosis, rash Results Laboratory Results: 03/06/18 03/06/18 21:36 21:36 Creatine Kinase 91 CK-MB (CK-2) 2.31 Troponin I < 0.012 Impressions: Abdomen Ultrasound 03/06/18 15:38 IMPRESSION: Cholelithiasis with no direct evidence of cholecystitis. No ductal dilatation. Chest/Abdomen CTA 03/06/18 17:56 IMPRESSION: 1. There is no evidence of pulmonary emboli. 2. Mild dependent atelectasis. 3. Compression changes in the mid thoracic spine as described. Abdomen/Pelvis CT 03/06/18 18:16 IMPRESSION: Mild diverticulosis coli. No acute imaging findings in the abdomen or pelvis. Assessment & Plan - Diagnosis (1) Syncope and collapse Is this a current diagnosis for this admission?: Yes Plan: Vasovagal versus bradycardia possibly related to Namenda. Telemetry monitoring hold Namenda, orthostatic blood pressures, consider cardiology consult. Follow- up cardiac enzymes and TSH (2) Dementia Qualifiers: Dementia type: Alzheimer's disease Alzheimer's disease onset: unspecified onset Dementia behavioral disturbance: without behavioral disturbance Qualified Code(s): G30.9 - Alzheimer's disease, unspecified; F02.80 - Dementia in other diseases classified elsewhere without behavioral disturbance; F02.80 - Dementia in other diseases classified elsewhere without behavioral disturbance; F02.80 - Dementia in other diseases classified elsewhere without behavioral disturbance Is this a current diagnosis for this admission?: Yes Plan: Supportive care reduce Namenda dose. - Time Time Spent: 50 to 70 Minutes
[2018-03-07 04:45] LABS: CREATINE KINASE MB 1.94 ng/mL (<4.55)
[2018-03-07 04:49] LABS: TROPONIN I < 0.012 ng/mL
[2018-03-07 09:00] LABS: HEMATOCRIT 37.3 % (37.9-51.0); HEMOGLOBIN 12.6 g/dL (13.5-17.0); MEAN CORPUSCULAR HEMOGLOBIN 31.4 pg (27.0-33.4); MEAN CORPUSCULAR HGB CONC 33.9 g/dL (32.0-36.0); MEAN CORPUSCULAR VOLUME 92 fl (80-97); PLATELET COUNT 137 10^3/uL (150-450); RED BLOOD COUNT 4.03 10^6/uL (4.35-5.55); RED CELL DISTRIBUTION WIDTH 14.1 % (11.5-14.0); WHITE BLOOD COUNT 6.2 10^3/uL (4.0-10.5)
[2018-03-07 09:05] LABS: ANION GAP 12 (5-19); BLOOD UREA NITROGEN 18 mg/dL (7-20); CALCIUM 10.3 mg/dL (8.4-10.2); CARBON DIOXIDE 25 mmol/L (22-30); CHLORIDE 109 mmol/L (98-107); GLUCOSE 151 mg/dL (75-110); POTASSIUM 4.4 mmol/L (3.6-5.0); SODIUM 146.3 mmol/L (137-145)
[2018-03-07 11:20] LABS: CREATINE KINASE MB 1.81 ng/mL (<4.55); TROPONIN I < 0.012 ng/mL
[2018-03-07] MEDS ORDERED: LACTULOSE SYRUP 20 GM/30 ML UDCUP PO ONE ×2 (13:30→22:15)
--- NOTE | 2018-03-07 17:12 | PDOC PROGRESS REPORT ---
Subjective Progress Note for:: 03/07/18 Subjective:: The patient is an 82-year-old male with past medical history of dementia with paranoia and anxiety, atrial fibrillation, bradycardia, hypertension/hypotension , GERD, and arthritis who was admitted on 03/07/18 for chest pain associated with nausea and followed by a syncopal event. The patient is seen on morning rounds with his and daughter present. The patient is primarily Hungarian-speaking but does understand and speak Hungarian well ; he was able to carry on a conversation with minimal difficulty. He was offered a industrial controller but declined at this time. The patient reports that he has had a urine a half of intermittent left chest wall pain is not noticeably aggravated by activity but is relieved with rest. He reports that yesterday he had an incidence of right-sided chest wall pain that radiated to the left side, unusual from his typical pain as it radiated laterally across his chest and was much more intense in nature. The patient reports that he told his doctor that he felt sudden onset of fatigue and needed to lie down. Shortly later the patient felt the urge to have a bowel movement (had previously taken ExLax) and while ambulating to the restroom had a full syncopal event. The patient's family members report that they were standing nearby and assisted him to the floor without fall and that the patient had a full loss of consciousness for 1- 2 minutes. There was no seizure-like activity noted; family members deny biting of the tongue, muscle movements, and incontinence. Since his admission, the patient reports he has been chest pain-free. He denies dizziness, near syncope/syncope, chest pain, palpitations, dyspnea, orthopnea, abdominal pain, nausea vomiting and diarrhea. He does endorse continued constipation. Reason For Visit: SYNCOPE BRADYCARDIA DEMENTIA Physical Exam Vital Signs: Temp Pulse Resp BP Pulse Ox 98.6 F 64 17 125/55 L 98 03/07/18 16:00 03/07/18 16:00 03/07/18 16:00 03/07/18 16:03/07/18 16:00 Intake & Output 03/06/18 03/07/18 03/08/18 06:59 06:59 06:59 Intake Total 365 Output Total 350 Balance 15 Weight 55.8 kg General appearance: PRESENT: no acute distress, cooperative, hard of hearing, thin, well-developed, well-nourished Head exam: PRESENT: atraumatic, normocephalic Eye exam: PRESENT: conjunctiva pink, EOMI, PERRLA. ABSENT: scleral icterus Ear exam: PRESENT: normal external ear exam Mouth exam: PRESENT: moist, tongue midline Neck exam: ABSENT: carotid bruit, JVD, lymphadenopathy, thyromegaly Respiratory exam: PRESENT: clear to auscultation dayana, symmetrical, unlabored. ABSENT: rales, rhonchi, wheezes Cardiovascular exam: PRESENT: bradycardia, +S1, +S2, systolic murmur. ABSENT: diastolic murmur, rubs Pulses: PRESENT: normal dorsalis pedis pul Vascular exam: PRESENT: normal capillary refill GI/Abdominal exam: PRESENT: normal bowel sounds, soft. ABSENT: distended, guarding, mass, organolmegaly, rebound, tenderness Rectal exam: PRESENT: deferred Extremities exam: PRESENT: full ROM. ABSENT: calf tenderness, clubbing, pedal edema Neurological exam: PRESENT: alert, awake, oriented to person, oriented to place , oriented to time, oriented to situation, CN II-XII grossly intact. ABSENT: motor sensory deficit Psychiatric exam: PRESENT: appropriate affect, normal mood. ABSENT: homicidal ideation, suicidal ideation Skin exam: PRESENT: dry, intact, warm. ABSENT: cyanosis, rash Results Laboratory Results: 03/07/18 03:37 03/07/18 03:37 03/07/18 03/07/18 03:37 03:37 WBC 6.2 RBC 4.03 L Hgb 12.6 L Hct 37.3 L MCV 92 MCH 31.4 MCHC 33.9 RDW 14.1 H Plt Count 137 L Sodium 146.3 H Potassium 4.4 Chloride 109 H Carbon Dioxide 25 Anion Gap 12 BUN 18 Creatinine 1.02 Est GFR ( Amer) > 60 Est GFR (Non-Af Amer) > 60 Glucose 151 H Calcium 10.3 H 03/06/18 03/06/18 03/07/18 21:36 21:36 03:37 Creatine Kinase 91 78 CK-MB (CK-2) 2.31 Troponin I < 0.012 03/07/18 03/07/18 03/07/18 03:37 09:58 09:58 Creatine Kinase 65 CK-MB (CK-2) 1.94 1.81 Troponin I < 0.012 < 0.012 Impressions: Abdomen Ultrasound 03/06/18 15:38 IMPRESSION: Cholelithiasis with no direct evidence of cholecystitis. No ductal dilatation. Chest/Abdomen CTA 03/06/18 17:56 IMPRESSION: 1. There is no evidence of pulmonary emboli. 2. Mild dependent atelectasis. 3. Compression changes in the mid thoracic spine as described. Abdomen/Pelvis CT 03/06/18 18:16 IMPRESSION: Mild diverticulosis coli. No acute imaging findings in the abdomen or pelvis. Assessment & Plan - Diagnosis (1) Syncope and collapse Is this a current diagnosis for this admission?: Yes Plan: The patient was admitted with a syncopal event preceded by chest pain. Differential includes vasovagal response, arrhythmia, bradycardia, acute coronary event, orthostatic hypotension, TIA, seizure, medication side effect. CBC demonstrated mild anemia; hemoglobin stable. Although d-dimer was elevated, CTA of the chest is negative. Chemistry is unremarkable. TSH is normal. Serial troponins are negative 4. Orthostatic vital signs are negative. Patient is admitted to the medical floor on continuous cardiac telemetry. Holding Namenda. Will resume patient's nightly Xanax at decreased dose. We will evaluate for TIA/CVA with echocardiogram, carotid Doppler, MRI of the brain. Patient is noted to be bradycardic; will consult cardiology. Consider EEG and outpatient event monitoring. Fall precautions in place. (2) Bradycardia Is this a current diagnosis for this admission?: Yes Plan: The patient is noted to be in sinus bradycardia; heart rate into the mid 30s overnight. The patient does not appear to be on any medications may cause bradycardia; however, he does take several herbal supplements that do not translate well from Hungarian. Is unclear whether the supplements may be contributing to his low heart rate. Troponin is negative. We will obtain echocardiogram. Have consulted cardiology; appreciate their evaluation recommendations. (3) Chest pain Qualifiers: Chest pain type: unspecified Qualified Code(s): R07.9 - Chest pain, unspecified Is this a current diagnosis for this admission?: Yes Plan: The patient reports intermittent chest pain 1-1/2 years. He reports that the pain is typically nonradiating. He denies exacerbating factors but does admit that it is relieved by rest. He reports that he has not had the chest pain evaluated before by a healthcare provider. EKG demonstrated sinus bradycardia; no ST elevation or depression. Serial troponins negative 4. TSH is normal. We will obtain echocardiogram. We will obtain lipid panel with a.m. labs. Begin daily aspirin therapy. Cardiology has been consulted; appreciate their evaluation recommendation. Will defer decision for stress testing to cardiology. (4) Dementia Qualifiers: Dementia type: Alzheimer's disease Alzheimer's disease onset: unspecified onset Dementia behavioral disturbance: without behavioral disturbance Qualified Code(s): G30.9 - Alzheimer's disease, unspecified; F02.80 - Dementia in other diseases classified elsewhere without behavioral disturbance; F02.80 - Dementia in other diseases classified elsewhere without behavioral disturbance; F02.80 - Dementia in other diseases classified elsewhere without behavioral disturbance Is this a current diagnosis for this admission?: Yes Plan: Holding Namenda. Consider resuming a lower dose versus alternate medication (perhaps Exelon). Supportive care. - Time Time Spent with patient: 35 or more minutes Medications reviewed and adjusted accordingly: Yes Anticipated discharge: Home Within: within 24 hours
--- NOTE | 2018-03-07 17:45 | RADIOLOGY REPORT (SQ) ---
EXAM DESCRIPTION: MRI HEAD WITHOUT COMPLETED DATE/TIME: 03/07/2018 5:31 pm REASON FOR STUDY: Syncope; TIA/CVA workup R55 SYNCOPE AND COLLAPSE R07.9 CHEST PAIN, UNSPECIFIED COMPARISON: 09/18/2014 TECHNIQUE: Multiplanar imaging includes non-contrasted T1, T2, FLAIR, and Diffusion with ADC map seq uences. Images stored on PACS. LIMITATIONS: None. FINDINGS: ANATOMY: No anomalies. Normal vascular flow voids. Pituitary fossa normal. CSF SPACES: Normal in size and contour. No hemorrhage. CEREBRUM: A few high-signal intensity lesions scattered throughout the white matter on FLAIR imaging with distribution suggesting chronic micro-vascular ischemic change. Sulci and gyri normal in size a nd contour. No evidence of hemorrhage, mass or extraaxial fluid collection. POSTERIOR FOSSA: No signal alteration. No hemorrhage. No edema, masses or mass effect. Internal shira tory canals, cerebello-pontine angles, mastoids normal. DIFFUSION: Negative for acute or sub-acute infarction. ORBITS: No masses. Globes normal. PARANASAL SINUSES: No fluid levels. Mucosa normal. OTHER: No other significant finding. IMPRESSION: NO ACUTE ISCHEMIA, HEMORRHAGE, OR MASS LESION. NO SIGNIFICANT CHANGE FROM PRIOR STUDY. EVIDENCE OF ACUTE STROKE: NO. TECHNICAL DOCUMENTATION: JOB ID: [id number] [employer]- All Rights Reserved Reading location - IP/workstation name: [email or web address]
[2018-03-07] MEDS: DOCUSATE SODIUM 100 MG CAPSULE PO SCH (18:00)
[2018-03-07] MEDS ORDERED: ALPRAZOLAM 0.5 MG TABLET PO SCH (22:00)
[2018-03-07] MEDS: ALPRAZOLAM 0.25 MG TABLET PO SCH (22:25)
--- NOTE | 2018-03-07 22:32 | PDOC CONSULTATION ---
Consultation Consult Date: 03/07/18 Attending physician:: SUKH JOHNSON Consult reason:: Bradycardia, syncope, chest pain History of Present Illness Admission Date/PCP: 03/06/18 20:40 Patient complains of: Chest pain and syncope History of Present Illness: ROSA GUO is a 82 year old male, who was admitted to the emergency department following chest pain and syncopal spell. History is somewhat varied. Patient is he does understand Hungarian but cannot speak very well. Daughter was interviewed. It seems that patient was sitting as a passenger in the car back seat, when he complained being feeling unwell. He had missed his lunch. He had also taken a laxative. He felt an urge for bowel movement. He was taken to a close by restaurant, where well going to the hallway, he passed out. He was noted to be clammy and pale. Emergency medical dosimetrist were called when he was noted to have a low heart rate. He was subsequently brought to the emergency room where he was noted to be mildly bradycardic. He was admitted. I was consulted to evaluate both chest pain and syncopal spells. Patient has history of dementia. Patient also has history of chronic constipation. I am told that he also has a history of gallstones. Past Medical History Cardiac Medical History: Reports: Atrial Fibrillation - Bradycardia, Hypertension - HYPOtension Pulmonary Medical History: Reports: None EENT Medical History: Reports: None Neurological Medical History: Reports: None Endocrine Medical History: Reports: None Renal/ Medical History: Reports: None Malignancy Medical History: Reports: None GI Medical History: Reports: Gastroesophageal Reflux Disease Musculoskeltal Medical History: Reports: Arthritis Psychiatric Medical History: Reports: Dementia Denies: Depression Past Surgical History Past Surgical History: Reports: None Social History Information Source: Relative Lives with: Family Smoking Status: Former Smoker Frequency of Alcohol Use: None Hx Recreational Drug Use: No Drugs: None Hx Prescription Drug Abuse: No - Advance Directive Resuscitation Status: Full Code Surrogate healthcare decision maker:: Patient's daughter is the surrogate decision-maker Family History Family History: Arthritis Parental Family History Reviewed: Yes Children Family History Reviewed: Yes Sibling(s) Family History Reviewed.: Yes - No family history of premature coronary artery disease or sudden cardiac Medication/Allergy Home Medications: Alprazolam [Xanax 0.5 mg Tablet] 0.5 mg PO QHS 03/06/18 Cholecalciferol (Vitamin D3) [Maximum D3 10,000 unit Capsule] 10,000 unit PO DAILY 03/06/18 Cyanocobalamin (Vitamin B-12) [Vitamin B-12 1000 mcg Tablet] 1,000 mcg PO DAILY 03/06/18 Memantine HCl [Namenda 10 mg Tablet] 20 mg PO DAILY@1200 03/06/18 Allergies/Adverse Reactions: No Known Allergies Allergy (Verified 09/18/14 15:08) Review of Systems Review of Systems: Please see history of present illness and past medical history as wall. Constitutional: No fever or chills reported. History of dementia Head : No recent chronic headaches, recent head injury. Eyes: No recent eye pain, diplopia, redness, discharge, acute visual changes. Ears: No recent chronic ear pain, acute hearing loss, ear discharge. Oral cavity: No recent ulcerations, bleeding, oral cavity discomfort. Neck: No recent acute neck pain reported. Hematologic: No recent easy bruising or bleeding. Lymphatic: No recent lymph node enlargement reported. Cardiovascular system review: See history of present illness. Respiratory system review: No hemoptysis or blood clots in the lungs reported. Gastrointestinal system review: Negative for any recent acute hematemesis, melena. Genitourinary system review: No recent acute or chronic hematuria, flank pain, UTI etc. reported. Skin system review: Negative for any recent abnormal bruising, no rash, no pruritus reported. Neurologic: No definitive clinical stroke or TIA history. Previous history of near syncopal spell. 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 Psychologic: No history of major psychosis or major depression reported. Musculoskeletal: Minor aches and pains reported. No acute joint swelling reported. Endocrine: No recent polyuria, polydipsia, recent heat or cold intolerance. Physical Exam Vital Signs: Temp Pulse Resp BP Pulse Ox 98.6 F 65 17 125/55 L 98 03/07/18 16:00 03/07/18 19:00 03/07/18 16:00 03/07/18 16:00 03/07/18 16:00 Intake & Output 03/06/18 03/07/18 03/08/18 06:59 06:59 06:59 Intake Total 365 1500 Output Total 350 450 Balance 15 1050 Weight 55.8 kg Results Laboratory Results: 03/07/18 03:37 03/07/18 03:37 03/07/18 03/07/18 03:37 03:37 WBC 6.2 RBC 4.03 L Hgb 12.6 L Hct 37.3 L MCV 92 MCH 31.4 MCHC 33.9 RDW 14.1 H Plt Count 137 L Sodium 146.3 H Potassium 4.4 Chloride 109 H Carbon Dioxide 25 Anion Gap 12 BUN 18 Creatinine 1.02 Est GFR ( Amer) > 60 Est GFR (Non-Af Amer) > 60 Glucose 151 H Calcium 10.3 H 03/06/18 03/06/18 03/07/18 21:36 21:36 03:37 Creatine Kinase 91 78 CK-MB (CK-2) 2.31 Troponin I < 0.012 03/07/18 03/07/18 03/07/18 03:37 09:58 09:58 Creatine Kinase 65 CK-MB (CK-2) 1.94 1.81 Troponin I < 0.012 < 0.012 EKG Comments: Sinus bradycardia without any acute ST-T wave changes Impressions: Abdomen Ultrasound 03/06/18 15:38 IMPRESSION: Cholelithiasis with no direct evidence of cholecystitis. No ductal dilatation. Chest/Abdomen CTA 03/06/18 17:56 IMPRESSION: 1. There is no evidence of pulmonary emboli. 2. Mild dependent atelectasis. 3. Compression changes in the mid thoracic spine as described. Abdomen/Pelvis CT 03/06/18 18:16 IMPRESSION: Mild diverticulosis coli. No acute imaging findings in the abdomen or pelvis. Head MRI 03/07/18 00:00 IMPRESSION: NO ACUTE ISCHEMIA, HEMORRHAGE, OR MASS LESION. NO SIGNIFICANT CHANGE FROM PRIOR STUDY. EVIDENCE OF ACUTE STROKE: NO. Assessment & Plan - Diagnosis (1) Syncope and collapse Is this a current diagnosis for this admission?: Yes (2) Bradycardia Is this a current diagnosis for this admission?: Yes (3) Chest pain Qualifiers: Chest pain type: unspecified Qualified Code(s): R07.9 - Chest pain, unspecified Is this a current diagnosis for this admission?: Yes (4) Dementia Qualifiers: Dementia type: Alzheimer's disease Alzheimer's disease onset: unspecified onset Dementia behavioral disturbance: without behavioral disturbance Qualified Code(s): G30.9 - Alzheimer's disease, unspecified; F02.80 - Dementia in other diseases classified elsewhere without behavioral disturbance; F02.80 - Dementia in other diseases classified elsewhere without behavioral disturbance; F02.80 - Dementia in other diseases classified elsewhere without behavioral disturbance Is this a current diagnosis for this admission?: Yes - Notes Notes: 2D Echo NST Cardiac Monitoring Syncope: By history seems vasovagal. However at at his age it could be related to cardiac dysrhythmia. At this point agree with cardiac monitoring. Patient will need a event monitor as an outpatient. Bradycardia: Patient has mild bradycardia. Currently not on any medication. Recommend checking a free T3 and free T4. A TSH was normal. Chest pain: Patient is irregularly therefore may have coronary artery disease. Will schedule patient for a nuclear stress test. This will provide opportunity to exercise patient to see if his heart rate goes up. Dementia: Could resume Namenda as it usually does not cause bradycardia. - Time Time Spent: 30 to 50 Minutes - CODE STATUS was discussed, patient remains full code. Surrogate decision-maker patient's daughter. More than 50% of the time spent coordinating care, discussing management plans with involved caregivers. Management plans discussed with involved personnels. Medical decision making was of moderate to high complexity, patient's has multiple comorbidities. Medications reviewed and adjusted accordingly: Yes
[2018-03-07] MEDS: DEXTROSE 5%-1/2 NORMAL SALINE 1,000 ML IV PRN (23:21)
[2018-03-08 06:37] LABS: HEMATOCRIT 32.3 % (37.9-51.0); HEMOGLOBIN 11.1 g/dL (13.5-17.0); MEAN CORPUSCULAR HEMOGLOBIN 31.8 pg (27.0-33.4); MEAN CORPUSCULAR HGB CONC 34.2 g/dL (32.0-36.0); MEAN CORPUSCULAR VOLUME 93 fl (80-97); PLATELET COUNT 156 10^3/uL (150-450); RED BLOOD COUNT 3.48 10^6/uL (4.35-5.55); WHITE BLOOD COUNT 5.1 10^3/uL (4.0-10.5)
[2018-03-08] MEDS: HEPARIN SOD (PORCINE) 5,000 UNIT/ML 1 ML SYRINGE SUBCUT SCH ×3 (06:42→21:39)
[2018-03-08 06:54] LABS: ANION GAP 7 (5-19); BLOOD UREA NITROGEN 14 mg/dL (7-20); CARBON DIOXIDE 27 mmol/L (22-30); CHLORIDE 109 mmol/L (98-107); CHOLESTEROL 141.37 mg/dL (0-200); GLUCOSE 95 mg/dL (75-110); POTASSIUM 4.3 mmol/L (3.6-5.0); SODIUM 142.6 mmol/L (137-145); TRIGLYCERIDES 84 mg/dL (<150)
[2018-03-08 07:04] LABS: DIRECT LDL 60 mg/dL (<100)
[2018-03-08 07:10] LABS: FREE T3 3.94 pg/mL (2.77-5.27); FREE T4 (FREE THYROXINE) 1.4 ng/dL (0.78-2.19)
[2018-03-08] MEDS ORDERED: CHOLECALCIFEROL PO SCH (10:00)
[2018-03-08] MEDS ORDERED: [UNRECOGNIZED DRUG - OTHER] PO SCH (10:00)
[2018-03-08] MEDS: DOCUSATE SODIUM 100 MG CAPSULE PO SCH ×2 (10:00→18:06)
--- NOTE | 2018-03-08 13:32 | DRAGON STRESS TEST REPORT ---
INTRAVENOUS LEXISCAN CARDIOLITE STRESS TEST USING SINGLE PHOTON EMMISION COMPUTERIZED TOMOGRAPHIC. DATE OF PROCEDURE: March 08, 2018, INDICATION : Chest pain and syncope CARDIAC RISK FACTORS: Advanced age RESTING EKG: Sinus rhythm, no baseline ST-T wave changes STRESS EKG: No significant ST segment changes noted with LexiScan bolus REASON FOR TERMINATION: Protocol. PROCEDURE REPORT: Baseline heart rate 55 beats per minute with blood pressure of 131/70. Patient had no significant complaints. Patient was bolused with Lexiscan 0.4 mg intravenously followed by saline bolus. Heart rate at 2 minutes post bolus 103 with a blood pressure of 161/71. 3 minutes post bolus heart rate 79 with blood pressure of 145/56. No significant EKG changes were noted. Patient had no significant complaints during the procedure or postprocedure. CONCLUSIONS: Normal EKG and hemodynamic response to IV LexiScan. NUCLEAR DATA: At rest the patient was given 10.54 millicuries of technetium 99 sestamibi injected intravenously. As per protocol rest gated SPECT images were obtained. On day of stress test, the patient was given intravenous LexiScan at a dose of 0.4 mg in 5 mL intravenously, followed by flush with normal saline. Subsequently the stress dose of 34.0 millicuries of technetium 99 sestamibi was injected intravenously. As per protocol stress gated images were obtained. NUCLEAR INTERPRETATION: Both raw and processed data were used for interpretation. Visual, qualitative, computer-generated quantitative data was used. There was good myocardial uptake of technetium compound. Motion artifact and soft tissue attenuations were noted. Increased visceral uptake was noted. No definitive areas of transient perfusion defect noted, No definitive areas of fixed perfusion defect or scars noted. EKG gated imaging showed LV EF at 83 %, rest and stress gated EF similar visually. T. I D. ratio was 1.01. Lung heart ratio noted to be within normal limits 0.27. No significant extracardiac and abnormal radiotracer activities were noted. RV free wall uptake was noted to be WNL. IMPRESSION: Also refer to comments under nuclear interpretation. Also test results needs to be interpreted in the context of pretest probability. 1. No definitive areas of transient perfusion defect noted. 2. There is no definitive scintigraphic evidence of myocardial infarction/scar. 3. EKG gated imaging shows left ventricular ejection fraction of approx. 83 %. 4. Clinical correlation requested as occasionally single vessel disease or balanced ischemia could be missed. In approximately 10% of the cases Lexiscan may not cause adequate vasodilatory stress. RECOMMENDATIONS: Aggressive risk factor modification and medical management. Further evaluation may be needed if continued symptoms or other high risk indicators are noted on clinical evaluation. Close cardiology follow-up is also recommended. Clinical correlation with echocardiogram derived ejection fraction. Inability to exercise by itself can lead to increased cardiovascular event risks. Consider cardiology consultation and or follow-up if clinically indicated. I am available for cardiology evaluation and consultation if requested by the primary health organisation manager, unless patient already has a dry cleaning machine operator. KAVON
[2018-03-08] MEDS: CYANOCOBALAMIN (VITAMIN B-12) 1,000 MCG TABLET PO SCH (14:57)
[2018-03-08] MEDS: ASPIRIN 81 MG TABLET, CHEWABLE PO SCH (14:57)
--- NOTE | 2018-03-08 15:21 | RADIOLOGY REPORT (SQ) ---
EXAM DESCRIPTION: CAROTID DOPPLER COMPLETED DATE/TIME: 03/08/2018 3:01 pm REASON FOR STUDY: Syncope; TIA/CVA workup R55 SYNCOPE AND COLLAPSE R07.9 CHEST PAIN, UNSPECIFIED COMPARISON: None. TECHNIQUE: Grayscale ultrasound, Doppler velocity and spectra, and color Doppler images acquired of the extra-cranial carotid and vertebral arteries. Images stored on PACS. LIMITATIONS: None. FINDINGS: RIGHT CAROTID CCA Velocities: Within normal limits. ICA Velocities Peak systolic 1.01 m/s. End diastolic 0.34 m/s. Proximal ICA/CCA peak systolic ratio 1.3. Spectra normal. No significant plaque. LEFT CAROTID CCA Velocities: Within normal limits. ICA Velocities Peak systolic 0.93 m/s. End diastolic 0.35 m/s. Proximal ICA/CCA peak systolic ratio 1.08. Spectra normal. No significant plaque. VERTEBRAL ARTERIES: Antegrade flow. Normal waveforms. SUBCLAVIAN ARTERIES: No finding. OTHER: No other significant finding. IMPRESSION: NO HEMODYNAMICALLY SIGNIFICANT STENOSIS. COMMENT: Quality ID #[id number]: Velocity criteria are extrapolated from the diameter data as defined by t he Society of Radiologists in Ultrasound Consensus Conference. Radiology 2003: 229; 340-346. TECHNICAL DOCUMENTATION: JOB ID: [id number] [employer]- All Rights Reserved Reading location - IP/workstation name: [facility], [facility]
--- NOTE | 2018-03-08 15:39 | PDOC PROGRESS REPORT ---
Subjective Progress Note for:: 03/08/18 Subjective:: The patient is an 82-year-old male with past medical history of dementia with paranoia and anxiety, atrial fibrillation, bradycardia, hypertension/hypotension , GERD, and arthritis who was admitted on 03/07/18 for chest pain associated with nausea and followed by a syncopal event. The patient is seen on morning rounds with his and daughter present. The patient is primarily [place]andan-speaking but does understand and speak Persian well ; he was able to carry on a conversation with minimal difficulty. 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 The patient reports he is feeling well. He denies further occurrences of chest pain, dizziness, near syncope. He tells me that he worked with physical therapy this morning and completed nuclear stress test today without discomfort. He does endorse continued constipation, although, states that he did have a small bowel movement last night. Reason For Visit: SYNCOPE BRADYCARDIA DEMENTIA Physical Exam Vital Signs: Temp Pulse Resp BP Pulse Ox 97.6 F 59 L 16 124/56 L 99 03/08/18 08:00 03/08/18 11:37 03/08/18 11:37 03/08/18 08:00 03/08/18 08:00 Intake & Output 03/07/18 03/08/18 03/09/18 06:59 06:59 06:59 Intake Total 365 1500 120 Output Total 350 450 500 Balance 15 1050 -380 Weight 55.8 kg 55.8 kg General appearance: PRESENT: no acute distress, cooperative, thin, well- developed, well-nourished Head exam: PRESENT: atraumatic, normocephalic Eye exam: PRESENT: conjunctiva pink, EOMI, PERRLA. ABSENT: scleral icterus Mouth exam: PRESENT: moist, tongue midline Neck exam: ABSENT: carotid bruit, JVD, lymphadenopathy, thyromegaly Respiratory exam: PRESENT: clear to auscultation dayana, symmetrical, unlabored. ABSENT: rales, rhonchi, wheezes Cardiovascular exam: PRESENT: RRR, +S1, +S2. ABSENT: diastolic murmur, rubs, systolic murmur Pulses: PRESENT: normal dorsalis pedis pul Vascular exam: PRESENT: normal capillary refill GI/Abdominal exam: PRESENT: normal bowel sounds, soft. ABSENT: distended, guarding, mass, organolmegaly, rebound, tenderness Rectal exam: PRESENT: deferred Extremities exam: PRESENT: full ROM. ABSENT: calf tenderness, clubbing, pedal edema Neurological exam: PRESENT: alert, awake, oriented to person, oriented to place , oriented to time, oriented to situation, CN II-XII grossly intact. ABSENT: motor sensory deficit Psychiatric exam: PRESENT: appropriate affect, normal mood. ABSENT: homicidal ideation, suicidal ideation Skin exam: PRESENT: dry, intact, warm. ABSENT: cyanosis, rash Results Laboratory Results: 03/08/18 05:41 03/08/18 05:41 03/08/18 03/08/18 03/08/18 05:41 05:41 05:41 WBC 5.1 RBC 3.48 L Hgb 11.1 L Hct 32.3 L MCV 93 MCH 31.8 MCHC 34.2 RDW 14.0 Plt Count 156 Sodium 142.6 Potassium 4.3 Chloride 109 H Carbon Dioxide 27 Anion Gap 7 BUN 14 Creatinine 0.82 Est GFR ( Amer) > 60 Est GFR (Non-Af Amer) > 60 Glucose 95 Calcium 9.0 Triglycerides 84 Cholesterol 141.37 LDL Cholesterol Direct 60 VLDL Cholesterol 17.0 HDL Cholesterol 47 Free T4 1.40 Free T3 pg/mL 3.94 03/06/18 03/06/18 03/07/18 21:36 21:36 03:37 Creatine Kinase 91 78 CK-MB (CK-2) 2.31 Troponin I < 0.012 03/07/18 03/07/18 03/07/18 03:37 09:58 09:58 Creatine Kinase 65 CK-MB (CK-2) 1.94 1.81 Troponin I < 0.012 < 0.012 Impressions: Abdomen Ultrasound 03/06/18 15:38 IMPRESSION: Cholelithiasis with no direct evidence of cholecystitis. No ductal dilatation. Chest/Abdomen CTA 03/06/18 17:56 IMPRESSION: 1. There is no evidence of pulmonary emboli. 2. Mild dependent atelectasis. 3. Compression changes in the mid thoracic spine as described. Abdomen/Pelvis CT 03/06/18 18:16 IMPRESSION: Mild diverticulosis coli. No acute imaging findings in the abdomen or pelvis. Head MRI 03/07/18 00:00 IMPRESSION: NO ACUTE ISCHEMIA, HEMORRHAGE, OR MASS LESION. NO SIGNIFICANT CHANGE FROM PRIOR STUDY. EVIDENCE OF ACUTE STROKE: NO. Carotid Doppler Study 03/08/18 00:00 IMPRESSION: NO HEMODYNAMICALLY SIGNIFICANT STENOSIS. Assessment & Plan - Diagnosis (1) Syncope and collapse Is this a current diagnosis for this admission?: Yes Plan: The patient was admitted with a syncopal event preceded by chest pain. Differential includes vasovagal response, arrhythmia, bradycardia, acute coronary event, orthostatic hypotension, TIA, seizure, medication side effect. CBC demonstrated mild anemia; hemoglobin stable. Although d-dimer was elevated, CTA of the chest is negative. Chemistry is unremarkable. TSH is normal. Serial troponins are negative 4. Orthostatic vital signs are negative. Carotid Doppler is negative for hemodynamically significant stenosis. MRI of the brain reveals chronic microvascular changes but no acute processes. Echocardiogram is pending. Lipid panel and A1c are acceptable. Patient is admitted to the medical floor on continuous cardiac telemetry. Continue patient's nightly Xanax at decreased dose. Patient is noted to be bradycardic; will consult cardiology. Appreciate their evaluation and recommendations. Patient's family is requesting that an EEG be completed if possible; have ordered procedure. There is some question as to whether or not we have neurology service available for interpreting EEG at this time. If they are not available at this time, will plan on arranging for outpatient neurology follow- up (patient and family aware; agreeable to plan). Fall precautions in place. PT/OT evaluation and treatment requested. (2) Bradycardia Is this a current diagnosis for this admission?: Yes Plan: The patient is noted to be in sinus bradycardia; heart rate into the mid 30s overnight. The patient does not appear to be on any medications may cause bradycardia; however, he does take several herbal supplements that do not translate well from [place]. Is unclear whether the supplements may be contributing to his low heart rate. Troponin is negative. Echocardiogram pending. Have consulted cardiology; appreciate their evaluation recommendations. Understand from family that Dr. Howell will follow him as an outpatient and arrange for event monitoring. (3) Chest pain Qualifiers: Chest pain type: unspecified Qualified Code(s): R07.9 - Chest pain, unspecified Is this a current diagnosis for this admission?: Yes Plan: The patient reports intermittent chest pain 1-1/2 years. He reports that the pain is typically nonradiating. He denies exacerbating factors but does admit that it is relieved by rest. He reports that he has not had the chest pain evaluated before by a healthcare provider. EKG demonstrated sinus bradycardia; no ST elevation or depression. Serial troponins negative 4. TSH is normal. Echocardiogram is pending. Lipid panel and hemoglobin A1c are acceptable. Reassuring nuclear stress test today. Continue daily aspirin therapy. Cardiology has been consulted; appreciate their evaluation recommendation. (4) Dementia Qualifiers: Dementia type: Alzheimer's disease Alzheimer's disease onset: unspecified onset Dementia behavioral disturbance: without behavioral disturbance Qualified Code(s): G30.9 - Alzheimer's disease, unspecified; F02.80 - Dementia in other diseases classified elsewhere without behavioral disturbance; F02.80 - Dementia in other diseases classified elsewhere without behavioral disturbance; F02.80 - Dementia in other diseases classified elsewhere without behavioral disturbance Is this a current diagnosis for this admission?: Yes Plan: Holding Namenda. Consider resuming a lower dose versus alternate medication; unfortunately all medications (Namenda, Exelon, and Aricept) include side effects of syncope and bradycardia. The patient adamantly requests to resume his Namenda; as the patient has been noted to be severely bradycardiac (to the mid 30s), will ask cardiology to approve resumption of this medication. Supportive care. (5) Anemia Is this a current diagnosis for this admission?: Yes Plan: Initial CBC revealed mild anemia with a hemoglobin of 12.1. Has drifted down slightly to 11.1; most likely secondary to IV fluids. No signs of active bleeding. We will assess anemia panel. - Time Time Spent with patient: 15-24 minutes Medications reviewed and adjusted accordingly: Yes Anticipated discharge: Home Within: within 24 hours
[2018-03-08] MEDS ORDERED: REGADENOSON INJ 0.4 MG/5 ML DISP.SYRIN IV ONE (16:25)
--- NOTE | 2018-03-08 18:17 | XCELERA REPORT ---
[address] [address] Transthoracic Echocardiogram Report Name: ROSA GUO Age: 82 yrs Gender: Male : 1935 Patient Status: Inpatient Patient Location: [address] [place], [place] [address]A Study Date: 03/08/2018 08:32 AM Height: 65 in Weight: 123 lb BSA: 1.6 m2 Procedure: A complete two-dimensional transthoracic echocardiogram was performed (2D, M-mode, spectral and color flow Doppler). The study was technically adequate with some images being suboptimal in quality. Reason For Study: Syncope Ordering Physician: JASMIN RAMOS Performed By: Charanjit Bermeo Interpretation Summary The left ventricular ejection fraction is normal. There is normal left ventricular wall thickness. The left ventricle is grossly normal size. LV diastolic function could not be adequately assessed. Wall motion cannot be accurately commented on, but no definite regional wall motion abnormalities noted. The right ventricular systolic function is normal. The left atrial size is normal. The right atrium is normal. There is a trace amount of mitral regurgitation There is no mitral valve stenosis. There is a trace to mild amount of aortic regurgitation There is no aortic valve stenosis There is a trace to mild amount of tricuspid regurgitation Tricuspid regurgitation jet envelope not well defined to measure RV systolic pressure accurately. The aortic root is not well visualized but is probably normal size. The inferior vena cava appeared normal and decreased > 50% with respiration (RAP 5-10 mmHg) There is no pericardial effusion. MMode/2D Measurements & Calculations RVDd: 2.7 cm LVIDd: 3.9 cm FS: 37.9 % Ao root diam: 3.1 cm IVSd: 0.66 cm LVIDs: 2.4 cm EDV(Teich): 66.9 ml LVPWd: 0.70 cmESV(Teich): 20.9 ml Ao root area: 7.4 cm2 EF(Teich): 68.7 % LA dimension: 3.0 cm LVOT diam: 1.8 cm LVOT area: 2.5 cm2 Doppler Measurements & Calculations MV E max dion: MV P1/2t max dion: Ao V2 max: AI max dion: 95.3 cm/sec 104.4 cm/sec 128.8 cm/sec 208.0 cm/sec MV A max dion: MV P1/2t: 67.6 msec Ao max PG: AI max P.7 cm/sec MVA(P1/2t): 3.3 cm2 6.6 mmHg 17.3 mmHg MV E/A: 1.5 MV dec slope: RACHEL(V,D): 2.4 cm2AI dec slope: 452.5 cm/sec2 229.0 cm/sec2 MV dec time: AI P1/2t: 0.20 sec 266.0 msec LV V1 max PG: TV V2 max: PA V2 max: 6.2 mmHg 289.6 cm/sec 92.8 cm/sec LV V1 max: TV max P.7 mmHg PA max P.0 cm/sec 3.4 mmHg Left Ventricle The left ventricle is grossly normal size. There is normal left ventricular wall thickness. The left ventricular ejection fraction is normal. LV diastolic function could not be adequately assessed. Wall motion cannot be accurately commented on, but no definite regional wall motion abnormalities noted. Right Ventricle The right ventricle is grossly normal size. There is normal right ventricular wall thickness. The right ventricular systolic function is normal. Atria The right atrium is normal. The left atrial size is normal. Interarterial septum not well visualized and not well dopplered. Cannot comment on ASD/PFO presence. Mitral Valve The mitral valve is grossly normal. There is no mitral valve stenosis. There is a trace amount of mitral regurgitation. Aortic Valve The aortic valve is not well visualized secondary to technical limitations. The aortic valve opens well. There is no aortic valve stenosis. There is a trace to mild amount of aortic regurgitation. Tricuspid Valve The tricuspid valve is not well visualized, but is grossly normal. There is no tricuspid stenosis. There is a trace to mild amount of tricuspid regurgitation. Tricuspid regurgitation jet envelope not well defined to measure RV systolic pressure accurately. Pulmonic Valve The pulmonic valve is not well visualized. Great Vessels The aortic root is not well visualized but is probably normal size. The inferior vena cava appeared normal and decreased > 50% with respiration (RAP 5-10 mmHg). Effusions There is no pericardial effusion. : JASMIN RAMOS > Jasmin Ramos
--- NOTE | 2018-03-08 20:05 | PDOC PROGRESS REPORT ---
Subjective Progress Note for:: 03/08/18 Subjective:: In the morning nuclear stress test procedure was explained to the patient in detail. Risk benefits were discussed and informed consent was obtained. Patient did undergo nuclear stress test without any complications. Patient seems to be doing better with gradual improvement. Pt is denying any chest arm or neck discomfort. Patient denying any PND, orthopnea. Patient denied any sustained palpitations, dizziness, syncope, near syncope. Patient denying any fever chills. Patient denying any other significant discomfort. Patient is maintaining sinus rhythm. Review of systems: Rest review of systems negative. Medications: Medications have been reviewed. Reason For Visit: SYNCOPE,BRADYCARDIA,CHEST PAIN Physical Exam Vital Signs: Temp Pulse Resp BP Pulse Ox 97.6 F 59 L 16 124/56 L 99 03/08/18 08:00 03/08/18 11:37 03/08/18 11:37 03/08/18 08:00 03/08/18 08:00 Exam: GENERAL: well-nourished and in no acute distress. Alert and oriented x3 HEAD: Atraumatic, normocephalic. EYES: Pupils equal round and reactive to light, extraocular movements intact, sclera anicteric, conjunctiva are normal. ENT: TMs normal, nares patent, oropharynx clear without exudates. Moist mucous membranes. No oral ulcerations or bleeding gums noted NECK: supple without lymphadenopathy. Trachea is central. No cervical or axillary lymphadenopathy noted. Carotids are 2+, JVD WNL LUNGS: Respiration seems nonlabored, no significant accessory muscle action noted. Breath sounds clear to auscultation bilaterally and equal noted. No wheezes rales or rhonchi noted. No significant dullness noted on percussion. CHEST: Palpation of the chest wall shows no significant chest wall tenderness. 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 ABDOMEN: Soft, no significant tenderness appreciated, normoactive bowel sounds. No guarding, no rebound. No rigidity noted . No masses appreciated. EXTREMITIES: Pedal pulses are 1-2+, no calf tenderness noted. No clubbing or cyanosis. negative pedal edema noted NEUROLOGICAL: Focused neurological exam showed no significant neurologic deficit. Normal speech, no focal weakness appreciated. PSYCH: Normal mood, normal affect. Judgment and insight within normal limits. SKIN: No significant ecchymosis, skin is noted to be warm. MUSCULOSKELETAL EXAM: No significant acute joint swelling noted. Results EKG Comments: Shows sinus rhythm with mild sinus bradycardia at times Impressions: Abdomen Ultrasound 03/06/18 15:38 IMPRESSION: Cholelithiasis with no direct evidence of cholecystitis. No ductal dilatation. Chest/Abdomen CTA 03/06/18 17:56 IMPRESSION: 1. There is no evidence of pulmonary emboli. 2. Mild dependent atelectasis. 3. Compression changes in the mid thoracic spine as described. Abdomen/Pelvis CT 03/06/18 18:16 IMPRESSION: Mild diverticulosis coli. No acute imaging findings in the abdomen or pelvis. Head MRI 03/07/18 00:00 IMPRESSION: NO ACUTE ISCHEMIA, HEMORRHAGE, OR MASS LESION. NO SIGNIFICANT CHANGE FROM PRIOR STUDY. EVIDENCE OF ACUTE STROKE: NO. Carotid Doppler Study 03/08/18 00:00 IMPRESSION: NO HEMODYNAMICALLY SIGNIFICANT STENOSIS. Assessment & Plan - Diagnosis (1) Syncope and collapse Is this a current diagnosis for this admission?: Yes (2) Bradycardia Is this a current diagnosis for this admission?: Yes (3) Chest pain Qualifiers: Chest pain type: unspecified Qualified Code(s): R07.9 - Chest pain, unspecified Is this a current diagnosis for this admission?: Yes (4) Dementia Qualifiers: Dementia type: Alzheimer's disease Alzheimer's disease onset: unspecified onset Dementia behavioral disturbance: without behavioral disturbance Qualified Code(s): G30.9 - Alzheimer's disease, unspecified; F02.80 - Dementia in other diseases classified elsewhere without behavioral disturbance; F02.80 - Dementia in other diseases classified elsewhere without behavioral disturbance; F02.80 - Dementia in other diseases classified elsewhere without behavioral disturbance Is this a current diagnosis for this admission?: Yes - Notes Notes: 2D echo performed showed normal LVEF. No significant valvular stenotic lesions noted. Nuclear stress study was negative for any pharmacologic stress-induced ischemia. During stress test patient was also made to do a straight leg raising exercises which did increase his heart rate to 103. This was noted to be satisfactory increase in his heart rate for his age. Syncope: By history seems vasovagal. However at patient's age it could be related to cardiac dysrhythmia. At this point agree with cardiac monitoring. Patient will need a event monitor as an outpatient. Bradycardia: Patient has mild bradycardia. Currently not on any medication. Recommend checking a free T3 and free T4. A TSH was normal. Subsequently free T3 and free T4 also came back WNL. Chest pain: Patient is elderly therefore may have coronary artery disease. Nuclear stress test showed no evidence of pharmacologic stress-induced ischemia. Dementia: Could resume Namenda as it usually does not cause bradycardia. - Time Time with patient: Greater than 35 minutes - Patient was seen multiple times. Total time exceeds 40 minutes. In the morning nuclear stress test procedure, risks benefits, alternatives were discussed. Patient seen during the stress test. Patient also seen after stress test when results were discussed with the patient in detail. Patient's questions were answered. Nuclear stress test results were discussed with the patient. Patient was informed that no definitive evidence of pharmacologic stress-induced ischemia noted. No definite fixed defects were noted. Patient informed that occasionally significant single vessel disease or balanced ischemia could be missed. However based on the current study results, would recommend aggressive risk factor modification and medical therapy. It may also be worthwhile to consider evaluation or empiric management of other causes of chest pain. Should no other cause be found and if persistent in having chest pain, then cardiac catheterization should be considered. Right now, recommendations are for aggressive risk factor modification and medical management. CODE STATUS was discussed, patient remains full code. Surrogate decision-maker unchanged. Multiple medical problems were addressed. More than 50% of the time spent coordinating care, discussing management plans with involved caregivers. Management plans discussed with involved personnels. Medical decision making was of moderate to high complexity, patient's has multiple comorbidities. Medications reviewed and adjusted accordingly: Yes
[2018-03-08] MEDS: ALPRAZOLAM 0.25 MG TABLET PO SCH (21:39)
[2018-03-09 06:07] LABS: ABSOLUTE RETICS # 0.059 10^6/uL (0.028-0.122); HEMOGLOBIN 12.8 g/dL (13.5-17.0); MEAN CORPUSCULAR HEMOGLOBIN 31.9 pg (27.0-33.4); MEAN CORPUSCULAR HGB CONC 34.5 g/dL (32.0-36.0); MEAN CORPUSCULAR VOLUME 93 fl (80-97); PLATELET COUNT 170 10^3/uL (150-450); RED CELL DISTRIBUTION WIDTH 13.9 % (11.5-14.0); RETICULOCYTE COUNT (AUTO) 1.46 % (0.66-2.85); WHITE BLOOD COUNT 4.9 10^3/uL (4.0-10.5)
[2018-03-09 06:19] LABS: IRON(TIBC) 50.6 ug/dL (49-181)
[2018-03-09] MEDS: HEPARIN SOD (PORCINE) 5,000 UNIT/ML 1 ML SYRINGE SUBCUT SCH ×2 (06:31→14:31)
[2018-03-09] MEDS: DEXTROSE 5%-1/2 NORMAL SALINE 1,000 ML IV PRN (08:41)
[2018-03-09] MEDS ORDERED: MEMANTINE HCL 10 MG TABLET PO SCH (12:00)
--- NOTE | 2018-03-09 12:18 | RADIOLOGY REPORT (SQ) ---
EXAM DESCRIPTION: ACUTE ABDOMEN SERIES COMPLETED DATE/TIME: 03/09/2018 11:54 am REASON FOR STUDY: abdominal pain, nausea R55 SYNCOPE AND COLLAPSE R07.9 CHEST PAIN, UNSPECIFIED D6 4.9 ANEMIA, UNSPECIFIED COMPARISON: CT of the chest with contrast 03/06/2018. NUMBER OF VIEWS: Three views. TECHNIQUE: Frontal chest, supine abdomen and upright/decubitus abdomen radiographic images acquired. LIMITATIONS: None. FINDINGS: CHEST: Chronic left basilar scarring. Right apical pleural thickening. FREE AIR: None. No abnormal gas collections. BOWEL GAS PATTERN: Nonspecific bowel-gas pattern with scattered gas throughout the colon to the rectu m. Scattered small bowel gas. . No visceromegaly. CALCIFICATIONS: No suspicious calcifications. HARDWARE: None in the abdomen. SOFT TISSUES: No gross mass or suggestion of organomegaly. BONES: Lumbar spondylosis with scoliosis convex left. Old compression deformity of L4. . OTHER: Vascular calcification of abdominal aorta and iliac vessels. IMPRESSION: NO SIGNIFICANT ABNORMALITY SEEN. TECHNICAL DOCUMENTATION: JOB ID: [id number] [employer]- All Rights Reserved Reading location - IP/workstation name: [email or web address]
[2018-03-09] MEDS: DOCUSATE SODIUM 100 MG CAPSULE PO SCH ×2 (13:25→17:28)
[2018-03-09] MEDS: CYANOCOBALAMIN (VITAMIN B-12) 1,000 MCG TABLET PO SCH (13:26)
[2018-03-09] MEDS: ASPIRIN 81 MG TABLET, CHEWABLE PO SCH (13:26)
[2018-03-09] MEDS ORDERED: MAGNESIUM CITRATE 296 ML BOTTLE PO ONE (14:00)
[2018-03-09] MEDS ORDERED: BISACODYL 10 MG SUPP.RECT PR ONE (14:00)
--- NOTE | 2018-03-09 15:29 | PDOC PROGRESS REPORT ---
Subjective Progress Note for:: 03/09/18 Subjective:: Patient today went on to have a abdominal x-ray. This is because of history of chronic constipation and also history of intermittent abdominal pain. X-ray report came back satisfactory. We went over cardiac evaluation and need for cardiac monitoring. Patient seems to be doing better with gradual improvement. Pt is denying any chest arm or neck discomfort. Patient denying any PND, orthopnea. Patient denied any sustained palpitations, dizziness, syncope, near syncope. Patient denying any fever chills. Patient denying any other significant discomfort. Patient is maintaining sinus rhythm. Review of systems: Rest review of systems negative. Medications: Medications have been reviewed. Reason For Visit: SYNCOPE,BRADYCARDIA,CHEST PAIN Physical Exam Vital Signs: Temp Pulse Resp BP Pulse Ox 97.7 F 56 L 15 132/69 H 100 03/09/18 11:27 03/09/18 11:27 03/09/18 11:27 03/09/18 11:27 03/09/18 11:27 Intake & Output 03/08/18 03/09/18 03/10/18 06:59 06:59 06:59 Intake Total 1025 Output Total 1900 Balance -875 Exam: GENERAL: well-nourished and in no acute distress. Alert and oriented x3 HEAD: Atraumatic, normocephalic. EYES: Pupils equal round and reactive to light, extraocular movements intact, sclera anicteric, conjunctiva are normal. ENT: TMs normal, nares patent, oropharynx clear without exudates. Moist mucous membranes. No oral ulcerations or bleeding gums noted NECK: supple without lymphadenopathy. Trachea is central. No cervical or axillary lymphadenopathy noted. Carotids are 2+, JVD WNL LUNGS: Respiration seems nonlabored, no significant accessory muscle action noted. Breath sounds clear to auscultation bilaterally and equal noted. No wheezes rales or rhonchi noted. No significant dullness noted on percussion. CHEST: Palpation of the chest wall shows no significant chest wall tenderness. 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 ABDOMEN: Soft, no significant tenderness appreciated, normoactive bowel sounds. No guarding, no rebound. No rigidity noted . No masses appreciated. EXTREMITIES: Pedal pulses are 1-2+, no calf tenderness noted. No clubbing or cyanosis. negative pedal edema noted NEUROLOGICAL: Focused neurological exam showed no significant neurologic deficit. Normal speech, no focal weakness appreciated. PSYCH: Normal mood, normal affect. Judgment and insight within normal limits. SKIN: No significant ecchymosis, skin is noted to be warm. MUSCULOSKELETAL EXAM: No significant acute joint swelling noted. Results Laboratory Results: 03/09/18 05:41 03/09/18 03/09/18 05:41 05:41 WBC 4.9 RBC 4.00 L Hgb 12.8 L Hct 37.0 L MCV 93 MCH 31.9 MCHC 34.5 RDW 13.9 Plt Count 170 Retic Count (auto) 1.46 Absolute Retic 0.059 Iron 50.6 TIBC 268 % Saturation 19 Ferritin 152.00 Vitamin B12 393.0 Folate 12.30 EKG Comments: Intermittent mild sinus bradycardia. Asymptomatic Impressions: Abdomen Ultrasound 03/06/18 15:38 IMPRESSION: Cholelithiasis with no direct evidence of cholecystitis. No ductal dilatation. Chest/Abdomen CTA 03/06/18 17:56 IMPRESSION: 1. There is no evidence of pulmonary emboli. 2. Mild dependent atelectasis. 3. Compression changes in the mid thoracic spine as described. Abdomen/Pelvis CT 03/06/18 18:16 IMPRESSION: Mild diverticulosis coli. No acute imaging findings in the abdomen or pelvis. Head MRI 03/07/18 00:00 IMPRESSION: NO ACUTE ISCHEMIA, HEMORRHAGE, OR MASS LESION. NO SIGNIFICANT CHANGE FROM PRIOR STUDY. EVIDENCE OF ACUTE STROKE: NO. Carotid Doppler Study 03/08/18 00:00 IMPRESSION: NO HEMODYNAMICALLY SIGNIFICANT STENOSIS. Acute Abdomen Series 03/09/18 00:00 IMPRESSION: NO SIGNIFICANT ABNORMALITY SEEN. Assessment & Plan - Diagnosis (1) Syncope and collapse Is this a current diagnosis for this admission?: Yes (2) Bradycardia Is this a current diagnosis for this admission?: Yes (3) Chest pain Qualifiers: Chest pain type: unspecified Qualified Code(s): R07.9 - Chest pain, unspecified Is this a current diagnosis for this admission?: Yes (4) Dementia Qualifiers: Dementia type: Alzheimer's disease Alzheimer's disease onset: unspecified onset Dementia behavioral disturbance: without behavioral disturbance Qualified Code(s): G30.9 - Alzheimer's disease, unspecified; F02.80 - Dementia in other diseases classified elsewhere without behavioral disturbance; F02.80 - Dementia in other diseases classified elsewhere without behavioral disturbance; F02.80 - Dementia in other diseases classified elsewhere without behavioral disturbance Is this a current diagnosis for this admission?: Yes - Notes Notes: Syncope and collapse: [place] to be related to vasovagal episode by history. Bradycardia: This is mild. For better symptom correlation, have recommended a cardiac event monitor. Chest pain: Atypical, nuclear stress test was negative. Patient and family was reassured. Dementia: Could restart Namenda on discharge. Constipation and chronic abdominal issues: Patient may benefit from GI evaluation as an outpatient. Patient offered my card and offered outpatient follow-up. - Time Time with patient: Greater than 35 minutes Medications reviewed and adjusted accordingly: Yes - CODE STATUS was discussed, patient remains full code. Surrogate decision-m
[2018-03-09 18:17] VITALS: BP 130/53
--- NOTE | 2018-03-09 18:31 | PDOC DISCHARGE SUMMARY ---
General - Admit/Disc Date/PCP Admission Date/Primary Care Provider: 03/08/18 14:21 Discharge Date: 03/09/18 - Discharge Diagnosis (1) Syncope and collapse Is this a current diagnosis for this admission?: Yes (2) Bradycardia Is this a current diagnosis for this admission?: Yes (3) Chest pain Is this a current diagnosis for this admission?: Yes (4) Dementia Is this a current diagnosis for this admission?: Yes (5) Anemia Is this a current diagnosis for this admission?: Yes (6) Constipation Is this a current diagnosis for this admission?: Yes - Additional Information Resuscitation Status: Full Code Discharge Diet: Regular, Other (Comments) Discharge Activity: Activity As Tolerated, Balance Activity w/Rest Prescriptions: Aspirin [Aspirin 81 mg Chewable Tablet] 81 mg PO DAILY #90 tab.chew Docusate Sodium [Colace 100 mg Capsule] 100 mg PO BID #60 capsule Memantine HCl [Namenda 10 mg Tablet] 10 mg PO DAILY@1200 #30 tablet Polyethylene Glycol 3350 [Miralax] 17 gm PO DAILYP PRN #1 bottle PRN Reason: Home Medications: Alprazolam [Xanax 0.5 mg Tablet] 0.5 mg PO QHS 03/06/18 Cholecalciferol (Vitamin D3) [Maximum D3 10,000 unit Capsule] 10,000 unit PO DAILY 03/06/18 Cyanocobalamin (Vitamin B-12) [Vitamin B-12 1000 mcg Tablet] 1,000 mcg PO DAILY 03/06/18 Acetaminophen [Tylenol 325 mg Tablet] 650 mg PO Q8HP PRN tablet 03/09/18 Aspirin [Aspirin 81 mg Chewable Tablet] 81 mg PO DAILY #90 tab.chew 03/09/18 Docusate Sodium [Colace 100 mg Capsule] 100 mg PO BID #60 capsule 03/09/18 Memantine HCl [Namenda 10 mg Tablet] 10 mg PO DAILY@1200 #30 tablet 03/09/18 Polyethylene Glycol 3350 [Miralax] 17 gm PO DAILYP PRN #1 bottle 03/09/18 History of Present Illness History of Present Illness: Per H&P by Dr. Tarango: ROSA GUO is a 82 year old male [place]-speaking male with history of dementia with paranoia and anxiety. Patient presents after prolonged international flight, complained of constipation took laxative followed by syncopal episode hours later. He denies chest pain palpitations nausea vomiting or headache. In the emergency room he has an unremarkable workup with exception to sinus bradycardia in the 60s. Patient takes Namenda and Xanax as needed. He has a negative CTA chest and referred to the hospitalist for admission. Patient admits gait instability and previous syncopal episode approximately 3 years ago without definitive diagnosis. Hospital Course Hospital Course: he patient was admitted with a syncopal event preceded by chest pain. CBC demonstrats mild anemia; hemoglobin stable and anemia panel is normal. Although d-dimer was elevated, CTA of the chest is negative. Chemistry is unremarkable. TSH is normal. Serial troponins are negative 4. Orthostatic vital signs are negative. Carotid Doppler is negative for hemodynamically significant stenosis. MRI of the brain reveals chronic microvascular changes but no acute processes. Echocardiogram is benign Nuclear stress test was normal. Lipid panel and A1c are acceptable. Patient was admitted to the medical floor on continuous cardiac telemetry. The patient's nightly Xanax was continued at a decreased dose. The patient's Namenda was held while inpatient. He was noted to be bradycardic on telemetry with his heart rate in the mid 40s-50s while awake and occasionally to high 30s when sleeping. Cardiology was consulted and plans to have the patient follow- up for outpatient event monitoring. The patient had no further episodes of chest pain, dizziness, or syncope with a benign cardiac evaluation. Physical therapy evaluated the patient and had no recommendations for continued outpatient physical therapy as the patient was stable and independent while ambulating greater than 300 feet. He did complain of persistent constipation despite 1 dose of lactulose and fleets enema. Acute abdominal series was obtained on day of discharge; normal gas pattern without evidence of ileus or obstruction. He was provided Dulcolax suppository and magnesium citrate with positive results. He was therefore discharged to home with self-care. He is advised to follow-up with his primary care provider immediately upon return to the [facility]. Should he stay in the [place] for any additional time, he should consider establishing with a primary care provider here as he travels regularly to [place] and our area providers are familiar with caring for snowbird/traveling patients. He is also recommended to follow-up with cardiology for outpatient event monitoring. At time of discharge, the patient is in stable condition, maintaining oxygen saturations on room air, tolerating a regular diet, having positive bowel movements, and pain-free. He is provided prescriptions for daily aspirin, Colace, Namenda 10 mg daily, and MiraLAX. Physical Exam Vital Signs: Temp Pulse Resp BP Pulse Ox 98.2 F 62 15 130/53 H 99 03/09/18 18:14 03/09/18 18:14 03/09/18 18:14 03/09/18 18:14 03/09/18 18:14 Intake & Output 03/08/18 03/09/18 03/10/18 06:59 06:59 06:59 Intake Total 1025 342 Output Total 1900 400 Balance -875 -58 General appearance: PRESENT: no acute distress, cooperative, thin, well- developed, well-nourished Head exam: PRESENT: atraumatic, normocephalic Eye exam: PRESENT: conjunctiva pink, EOMI, PERRLA. ABSENT: scleral icterus Ear exam: PRESENT: normal external ear exam Mouth exam: PRESENT: moist, tongue midline Neck exam: ABSENT: carotid bruit, JVD, lymphadenopathy, thyromegaly Respiratory exam: PRESENT: clear to auscultation dayana, symmetrical, unlabored. ABSENT: rales, rhonchi, wheezes Cardiovascular exam: PRESENT: bradycardia, +S1, +S2. ABSENT: diastolic murmur, rubs, systolic murmur Pulses: PRESENT: normal dorsalis pedis pul Vascular exam: PRESENT: normal capillary refill GI/Abdominal exam: PRESENT: normal bowel sounds, soft. ABSENT: distended, guarding, mass, organolmegaly, rebound, tenderness Rectal exam: PRESENT: deferred Extremities exam: PRESENT: full ROM. ABSENT: calf tenderness, clubbing, pedal edema Neurological exam: PRESENT: alert, awake, oriented to person, oriented to place , oriented to time, oriented to situation, CN II-XII grossly intact. ABSENT: motor sensory deficit Psychiatric exam: PRESENT: appropriate affect, normal mood. ABSENT: homicidal ideation, suicidal ideation Skin exam: PRESENT: dry, intact, warm. ABSENT: cyanosis, rash Results Laboratory Results: 03/09/18 05:41 03/09/18 03/09/18 05:41 05:41 WBC 4.9 RBC 4.00 L Hgb 12.8 L Hct 37.0 L MCV 93 MCH 31.9 MCHC 34.5 RDW 13.9 Plt Count 170 Retic Count (auto) 1.46 Absolute Retic 0.059 Iron 50.6 TIBC 268 % Saturation 19 Ferritin 152.00 Vitamin B12 393.0 Folate 12.30 Impressions: Abdomen Ultrasound 03/06/18 15:38 IMPRESSION: Cholelithiasis with no direct evidence of cholecystitis. No ductal dilatation. Chest/Abdomen CTA 03/06/18 17:56 IMPRESSION: 1. There is no evidence of pulmonary emboli. 2. Mild dependent atelectasis. 3. Compression changes in the mid thoracic spine as described. Abdomen/Pelvis CT 03/06/18 18:16 IMPRESSION: Mild diverticulosis coli. No acute imaging findings in the abdomen or pelvis. Head MRI 03/07/18 00:00 IMPRESSION: NO ACUTE ISCHEMIA, HEMORRHAGE, OR MASS LESION. NO SIGNIFICANT CHANGE FROM PRIOR STUDY. EVIDENCE OF ACUTE STROKE: NO. Carotid Doppler Study 03/08/18 00:00 IMPRESSION: NO HEMODYNAMICALLY SIGNIFICANT STENOSIS. Acute Abdomen Series 03/09/18 00:00 IMPRESSION: NO SIGNIFICANT ABNORMALITY SEEN. Qualifiers - * PATIENT BEING DISCHARGED WITH ANY OF THE FOLLOWING DIAGNOSIS: No Plan Discharge Plan: Discharge to home with self-care. Patient is instructed to establish with a primary care provider in the local area if he intends to remain in [place] for any period of time. Otherwise, he should follow-up with his primary care provider immediately upon return to the [facility].
[2018-03-10] MEDS ORDERED: MAGNESIUM CITRATE 296 ML BOTTLE PO SCH (10:00)
== END 2018-03-09 19:10 | disposition home or self-care (01) | DRG 312 ==
LOC: ER 14:56 → EH 20:40 → 4W 22:36 → OBSVTOIN 03-08 14:21 → 4N 03-08 15:55
PROVIDERS: ADMIT Internal Medicine; ATTEND Internal Medicine
DX: R55 Syncope and collapse (principal); R00.1 Bradycardia, unspecified; R07.9 Chest pain, unspecified; D64.9 Anemia, unspecified; K80.20 Calculus of gallbladder without cholecystitis without obstruction; I48.91 Unspecified atrial fibrillation; I10 Essential (primary) hypertension; K21.9 Gastro-esophageal reflux disease without esophagitis; K59.09 Other constipation; R25.1 Tremor, unspecified; G30.9 Alzheimer's disease, unspecified; F02.80 Dementia in other diseases classified elsewhere, unspecified severity, without behavioral disturbance, psychotic disturbance, mood disturbance, and anxiety
CPT/HCPCS: 36415; 70551; 71275; 74022; 74177; 76700; 78452; 80048; 80053; 80061; 81001; 82550; 82553; 82607; 82728; 82746; 83540; 83550; 84439; 84443; 84481; 84484; 85025; 85027; 85045; 85379; 93005; 93010; 93017; 93306; 93880; 94640; 96360; 99285; A9500; G0378; G8978-GP; G8979-GP; G8980-GP; G8987-GO; G8988-GO; G8989-GO; J1644; J2270; J2405; J2785; J3490; J7030; J7040; J7620; Q9969